=== PATIENT | male | born 1955 | race Caucasian/White ===

== ENCOUNTER → 2018-08-09 | Outpatient (CLI) | payer BC ==
--- NOTE | 2018-08-09 15:10 | CT ---
EXAMINATION TYPE: CT shoulder RT wo con DATE OF EXAM: 08/09/2018 COMPARISON: None HISTORY: Chronic rotator cuff tear per order.. CT DLP: 601.9 mGycm Automated exposure control for dose reduction was used. FINDINGS: Rotator cuff bulk shows mild generalized atrophy of the supraspinatus and to lesser degree infraspina tus muscles. Tendon tears cannot be evaluated by CT. Glenohumeral joint shows mild to moderate narrowing and mild spurring. No superior retraction of liam ral head identified to definitively suggest full-thickness rotator cuff tear. Acromioclavicular joint shows moderate to severe narrowing with moderate superior capsular hypertroph y. There is type II downsloping acromion. Humeral head shows some subchondral cystic change along the anterior aspect. Long head of biceps diff icult to distinctly visualize. Axillary region felt within normal limits. Visualized right lung and ribs are clear. Fairly moderate emphysematous change noted most prominent in the lung apex. IMPRESSION: ABOVE
== END | disposition home or self-care (01) ==
LOC: RADCTMAIN 14:32
PROVIDERS: ATTEND Orthopaedic Surgery Sports Medicine
DX: M62.511 Muscle wasting and atrophy, not elsewhere classified, right shoulder (principal); M25.811 Other specified joint disorders, right shoulder; M75.81 Other shoulder lesions, right shoulder; M85.611 Other cyst of bone, right shoulder; F17.200 Nicotine dependence, unspecified, uncomplicated

== ENCOUNTER → 2018-08-13 | Outpatient (CLI) | payer BC ==
[2018-08-13 09:57] LABS: Basophils % (A) 0 %; Eosinophils # (A) 0.3 k/uL (0-0.7); Eosinophils % (A) 4 %; HCT 45.4 % (39.0-53.0); HGB 14.5 gm/dL (13.0-17.5); Lymphocytes # (A) 1.4 k/uL (1.0-4.8); Lymphocytes % (A) 19 %; MCH 31.8 pg (25.0-35.0); MCV 99.2 fL (80.0-100.0); Macrocytosis Slight; Mean Platelet Volume 6.9; Monocytes # (A) 0.3 k/uL (0-1.0); Monocytes % (A) 4 %; Neutrophils # (A) 5.3 k/uL (1.3-7.7); Neutrophils % (A) 71 %; Platelet Count 375 k/uL (150-450); RBC 4.58 m/uL (4.30-5.90); RDW 15.5 % (11.5-15.5); WBC 7.5 k/uL (3.8-10.6)
[2018-08-13 10:18] LABS: Anion Gap 7 mmol/L; Blood Urea Nitrogen 16 mg/dL (9-20); Calcium 9.9 mg/dL (8.4-10.2); Carbon Dioxide 29 mmol/L (22-30); Chloride 103 mmol/L (98-107); Glucose 119 mg/dL (74-99); Sodium 139 mmol/L (137-145)
== END | disposition home or self-care (01) ==
LOC: LABPAT 08:57
PROVIDERS: ATTEND Internal Medicine
DX: Z01.818 Encounter for other preprocedural examination (principal); Z01.812 Encounter for preprocedural laboratory examination
CPT/HCPCS: 36415; 80048; 85025; 93005

== ENCOUNTER → 2018-08-19 | Outpatient (CLI) | payer BC ==
--- NOTE | 2018-08-19 11:37 | EST ---
EXERCISE STRESS DATE OF SERVICE: 08/19/2018 AGE: 63 SEX: Male HT: 5'9" WT: 211 pounds PROTOCOL: Doug STAGE: II DURATION OF EXERCISE: 4-1/2 minutes HEART RATE REST: 68 BLOOD PRESSURE REST: 139/79 MAXIMUM HEART RATE ACHIEVED: 133 MAXIMUM BLOOD PRESSURE: 186/98 85% MPHR: 133 100% MPHR: 156 METS: 5 INDICATIONS: Abnormal EKG CLINICAL INFORMATION: Baseline EKG shows sinus rhythm with nonspecific ST-T wave changes. Patient exercised on Doug protocol for a total of 4-1/2 minutes achieving 5 METs, 85% of predicted maximal heart rate without chest pain. At peak exercise, there was [address]-segment depression noted in the inferolateral leads. CONCLUSIONS: 1. Limited exercise tolerance. 2. Abnormal stress test by EKG criteria. MMODL / IJN: [id number] /
== END | disposition home or self-care (01) ==
LOC: RADNMMAIN 08:46
PROVIDERS: ATTEND Internal Medicine
DX: R94.39 Abnormal result of other cardiovascular function study (principal)
CPT/HCPCS: 93017

== ENCOUNTER → 2021-06-27 | Outpatient (CLI) | payer MEDICARE ==
--- NOTE | 2021-06-27 16:32 | XR ---
Left RIBS HISTORY: Pain, trauma 3 views of left ribs Acromial clavicular joint shows arthropathy, distal acromion shows a probable spur, suspect some alfie deling of the glenohumeral joint on the left consistent with osteoarthritis. No evident pneumothorax or pleural effusion. Tortuous descending aorta is present, thoracic spondylosis is present. There is no evident displaced rib fracture of the upper ribs. There is a lucency likely due to costoc hondral junction of the sixth and seventh ribs laterally IMPRESSION: Lucencies at the costochondral junctions as described, correlate for point tenderness to assess for fracture. Bone scan could be performed for increased sensitivity if occult fracture is anu pected clinically.
== END | disposition home or self-care (01) ==
LOC: RADXRMAIN 13:47
PROVIDERS: ATTEND Internal Medicine
DX: R07.81 Pleurodynia (principal)

== ENCOUNTER → 2022-03-11 | Outpatient (CLI) | payer MEDICARE ==
[2022-03-11 16:16] LABS: HCT 40.9 % (39.6-50.0); HGB 13.1 g/dL (13.0-17.0); MCH 32.6 pg (27.0-32.0); MCV 101.7 fL (80.0-97.0); Mean Platelet Volume 9.7 fL (9.5-12.2); NRBC Per 100 WBC 0 /100 WBCS (0.0-0.0); Platelet Count 305 X 10*3/uL (140-440); RBC 4.02 X 10*6/uL (4.40-5.60); RDW 13.9 % (11.5-14.5); WBC 3.18 X 10*3/uL (4.50-10.00)
[2022-03-11 21:11] LABS: African American GFR (CKD) 84.1 (60.0-200.0); Albumin 3.9 g/dL (3.8-4.9); Albumin/Globulin Ratio 0.74 (1.60-3.17); Anion Gap 17.3 mmol/L (10.00-18.00); BUN/Creat Ratio 14.76 Ratio (12.00-20.00); Blood Urea Nitrogen 15.5 mg/dL (9.0-27.0); Calcium 9.5 mg/dL (8.7-10.3); Carbon Dioxide 20.6 mmol/L (20.0-27.5); Globulin 5.3 g/dL (1.6-3.3); Non-African American GFR(CKD) 72.6 (60.0-200.0); T4, Free (Free Thyroxine) 1.02 ng/dL (0.800-1.800); Total Bilirubin 0.4 mg/dL (0.30-1.20); Total Protein 9.2 g/dL (6.2-8.2)
[2022-03-12 11:21] LABS: Estimated Average Glucose 481
== END | disposition home or self-care (01) ==
LOC: LABWHC1 10:57
PROVIDERS: ATTEND Internal Medicine
DX: R63.4 Abnormal weight loss (principal)
CPT/HCPCS: 36415; 80053; 83036; 84439; 84443; 85027

== ENCOUNTER → 2023-08-08 | Outpatient (CLI) | payer MEDICARE ==
--- NOTE | 2023-08-08 11:09 | XR ---
EXAM TYPE: LUMBAR SPINE X RAY SERIES COMPARISON: NONE HISTORY: Pain TECHNIQUE: 4 views are submitted. FINDINGS: Alignment is anatomic. The pedicles are intact. The transverse processes are intact. There is diff use osteopenia and severe multilevel degenerative disc disease with facet arthropathy. Hypertrophic s purring. There is findings suspicious for an abdominal aortic aneurysm measuring 4.6 cm. There is mul tilevel facet arthropathy and foraminal encroachment. Retrolisthesis of L2 relative to L3 with podiatric physician ior spondylosis at multiple levels. Findings are suggestive of prior surgery involving the lower lumb ar spine. IMPRESSION: 1. Diffuse osteopenia with severe degenerative disc disease at all levels. Facet arthropathy contribu nanette to multilevel foraminal encroachment. 2. Infrarenal abdominal aortic aneurysm measuring 4.6 cm.
--- NOTE | 2023-08-08 11:11 | XR ---
EXAMINATION TYPE: XR Hip Complete RT DATE OF EXAM: 08/08/2023 COMPARISON: NONE HISTORY: Pain TECHNIQUE: 2 views submitted FINDINGS: There is no evidence of erosive change or acute fracture. Moderate hypertrophic arthropathy of the ri ght hip. Vascular calcifications. No erosive changes. IMPRESSION: 1. Moderate hypertrophic arthropathy of the right hip. Correlate for femoral acetabular impingement..
== END | disposition home or self-care (01) ==
LOC: RADXRMAIN 10:09
PROVIDERS: ATTEND Family Medicine
DX: M51.36 Other intervertebral disc degeneration, lumbar region (principal); M47.816 Spondylosis without myelopathy or radiculopathy, lumbar region; M85.88 Other specified disorders of bone density and structure, other site; I71.43 Infrarenal abdominal aortic aneurysm, without rupture; M12.851 Other specific arthropathies, not elsewhere classified, right hip
CPT/HCPCS: 72100; 73502

== ENCOUNTER → 2023-09-17 | Outpatient (CLI) | payer MEDICARE ==
[2023-09-17 12:51] VITALS: BP 103/56; PULSE 79; RESP 14; TEMP 97.7
[2023-09-17] MEDS: SODIUM CHLORIDE 0.9% 500 ML 500 ML in EMPTY BAG 1 BAG IV PRN (12:52)
[2023-09-17] MEDS: ZOLEDRONIC ACID 4 MG in SODIUM CHLORIDE 0.9% 100 ML IV NR (12:52)
== END ==
LOC: PROCWHC3 12:22
PROVIDERS: ATTEND Internal Medicine
DX: C90.00 Multiple myeloma not having achieved remission (principal)
CPT/HCPCS: 96365; J3489

== ENCOUNTER 2023-09-24 13:17 | Emergency (ER) | payer MEDICARE ==
[2023-09-24 13:26] VITALS: RESP 18; TEMP 97.6
--- NOTE | 2023-09-24 13:32 | ED ---
Extremity Problem HPI - General Chief complaint: Extremity Problem,Nontraumatic Stated complaint: R hip pain Time Seen by Provider: 09/24/23 13:30 Source: patient, RN notes reviewed Mode of arrival: ambulatory Limitations: no limitations - History of Present Illness Initial comments: This is a 68-year-old male presents to the emergency department for chief complaint of right hip pain. Patient has a history of chronic right hip pain and was evaluated via radiologic studies that were ordered by his primary care provider. Patient has his first appointment with an airfield operations specialist this upcoming Sunday for further evaluation. He denies recent falls or trauma to the hip since time of initial evaluation. He has been prescribed medications from his primary care provider including relaxers which she states have not been aiding in relief. He denies saddle anesthesias, loss of bladder or bowel continence. Patient is able to ambulate with pain. He is endorsing radiation of pain from his right hip to his distal right foot described as a shocking sensation. No other acute complaints at this time. - Related Data Home Medications Medication Instructions Recorded Confirmed Acyclovir [Zovirax] 400 mg PO BID 04/23/23 09/17/23 Aspirin [Adult Low Dose Aspirin EC] 81 mg PO DAILY 04/23/23 09/17/23 Atorvastatin [Lipitor] 20 mg PO DAILY 04/23/23 09/17/23 Glimepiride 1 mg PO DAILY 04/23/23 09/17/23 Lenalidomide [Revlimid] 25 mg PO DAILY 04/23/23 09/17/23 Ondansetron [Zofran] 4 mg PO Q8HR PRN 04/23/23 09/17/23 dexAMETHasone [Decadron] 40 mg PO WEEKLY 04/23/23 09/17/23 lisinopriL [Zestril] 20 mg PO DAILY 04/23/23 09/17/23 Velcade 2.6 mg IN DIRECTED 04/30/23 09/17/23 Previous Rx's Medication Instructions Recorded Cyclobenzaprine [Flexeril] 10 mg PO TID PRN #15 tab 09/24/23 Ketorolac [Toradol] 10 mg PO Q8HR #15 tab 09/24/23 Allergies Allergy/AdvReac Type Severity Reaction Status Date / Time No Known Allergies Allergy Verified 09/24/23 13:26 Review of Systems ROS Statement: Those systems with pertinent positive or pertinent negative responses have been documented in the HPI. ROS Other: All systems not noted in ROS Statement are negative. Past Medical History Past Medical History: No Reported History, Diabetes Mellitus, Hypertension Additional Past Medical History / Comment(s): bone fractures ,multiple myeloma. History of Any Multi-Drug Resistant Organisms: None Reported Past Surgical History: Back Surgery, Orthopedic Surgery Additional Past Surgical History / Comment(s): r shoulder surgery Past Anesthesia/Blood Transfusion Reactions: No Reported Reaction Past Psychological History: No Psychological Hx Reported Smoking Status: Former smoker Past Alcohol Use History: None Reported Past Drug Use History: Marijuana General Exam Limitations: no limitations General appearance: alert, in no apparent distress Head exam: Present: atraumatic, normocephalic, normal inspection Eye exam: Present: normal appearance, PERRL, EOMI. Absent: scleral icterus, conjunctival injection, periorbital swelling ENT exam: Present: normal exam, mucous membranes moist Neck exam: Present: normal inspection. Absent: tenderness, meningismus, lymphadenopathy Respiratory exam: Present: normal lung sounds bilaterally. Absent: respiratory distress, wheezes, rales, rhonchi, stridor Cardiovascular Exam: Present: regular rate, normal rhythm, normal heart sounds. Absent: systolic murmur, diastolic murmur, rubs, gallop, clicks GI/Abdominal exam: Present: soft, normal bowel sounds. Absent: distended, tenderness, guarding, rebound, rigid Right Hip exam: Present: normal inspection. Absent: full ROM (pain with ROM), tenderness, swelling, abrasion, laceration, ecchymosis, deformity, crepitus Gait: observed and limited by pain. negative: unable to bear weight Back exam: Present: normal inspection Neurological exam: Present: alert, oriented X3, CN II-XII intact Course Vital Signs 09/24/23 09/24/23 13:24 15:28 Temperature 97.6 F Pulse Rate 83 69 Respiratory 18 18 Rate Blood Pressure 90/55 127/68 O2 Sat by Pulse 96 96 Oximetry Medical Decision Making - Medical Decision Making Was pt. sent in by a medical professional or institution (, PA, PLANT ASSIGNER, urgent care, hospital, or assisted...) When possible be specific @ -No Did you speak to anyone other than the patient for history (EMS, parent, family, police, friend...)? What history was obtained from this source @ -No Did you review nursing and triage notes (agree or disagree)? Why? @ -I reviewed and agree with nursing and triage notes Were old charts reviewed (outside hosp., previous admission, EMS record, old EKG, old radiological studies, urgent care reports/EKG's, assisted records)? Report findings @ -No old charts were reviewed Differential Diagnosis (chest pain, altered mental status, abdominal pain women, abdominal pain men, vaginal bleeding, weakness, fever, dyspnea, syncope, headache, dizziness, GI bleed, back pain, seizure, CVA, palpatations, mental health, musculoskeletal)? @ -Differential Musculoskeletal Muscular strain, contusion, ligament sprain, fracture, arthritis, septic arthritis, bursitis, cellulitis, muscle spasm, nerve compression, DVT, arterial occlusion, herpes zoster, electrolyte abnormality, tumor.... This is not meant to be in all inclusive list EKG interpreted by me (3pts min.). @ -None X-rays interpreted by me (1pt min.). @ -None done CT interpreted by me (1pt min.). @ -None done U/S interpreted by me (1pt. min.). @ -None done What testing was considered but not performed or refused? (CT, X-rays, U/S, labs)? Why? @ -X-ray was considered but deferred at this time due to patient having a recent x-ray completed and patient has not had any new trauma or injury to the hip concerning for an acute process. What meds were considered but not given or refused? Why? @ -None Did you discuss the management of the patient with other professionals (professionals i.e. , PA, PLANT ASSIGNER, lab, RT, psych nurse, director of social work, prepared foods associate, teacher, chief commercial officer, caser in)? Give summary @ -No Was smoking cessation discussed for >3mins.? @ -No Was critical care preformed (if so, how long)? @ -No Were there social determinants of health that impacted care today? How? (Homelessness, low income, unemployed, alcoholism, drug addiction, transportation, low edu. Level, literacy, decrease access to med. care, senior living, rehab)? @ -No Was there de-escalation of care discussed even if they declined (Discuss DNR or withdrawal of care, Hospice)? DNR status @ -No What co-morbidities impacted this encounter? (DM, HTN, Smoking, COPD, CAD, Cancer, CVA, ARF, Chemo, Hep., AIDS, mental health diagnosis, sleep apnea, morbid obesity)? @ -None Was patient admitted / discharged? Hospital course, mention meds given and route, prescriptions, significant lab abnormalities, going to OR and other pertinent info. @ -Discharged. 68-year-old male with right hip pain. On examination patient is able to ambulate with pain. He is endorsing a shocking sensation down the right leg that is intermittent. Patient was provided with pain medication in the emergency department doing Toradol and Dilaudid. On reevaluation patient states that his pain is significantly improved. Patient will be discharged home with muscle relaxer and Toradol as needed for pain relief. Recommend that patient keeps his scheduled appointment with airfield operations specialist for further evaluation. All questions have been answered at bedside and strict return parameters discussed with the patient he has verbalized understanding. Case discussed with Dr. Kirk. Undiagnosed new problem with uncertain prognosis? @ -No Drug Therapy requiring intensive monitoring for toxicity (Heparin, Nitro, Insulin, Cardizem)? @ -No Were any procedures done? @ -No Diagnosis/symptom? @ -Right hip pain Acute, or Chronic, or Acute on Chronic? @ -acute Uncomplicated (without systemic symptoms) or Complicated (systemic symptoms)? @ -uncomplicated Side effects of treatment? @ -No Exacerbation, Progression, or Severe Exacerbation? @ -No Poses a threat to life or bodily function? How? (Chest pain, [place], [place], pneumonia, PE, COPD, DKA, ARF, appy, cholecystitis, CVA, Diverticulitis, Homicidal, Suicidal, threat to staff... and all critical care pts) @ -No Disposition Clinical Impression: Right hip pain Disposition: HOME SELF-CARE Condition: Good Instructions (If sedation given, give patient instructions): Hip Pain (ED) Additional Instructions: Return to the emergency department symptoms worsen or not improve. Take pain medication as needed. Prescriptions: Cyclobenzaprine [Flexeril] 10 mg PO TID PRN #15 tab PRN Reason: Muscle Spasm Ketorolac [Toradol] 10 mg PO Q8HR #15 tab Is patient prescribed a controlled substance at d/c from ED?: No Referrals: Brian Murdock DO [Primary Care Provider] - 1-2 days
[2023-09-24] MEDS: HYDROmorphone 0.5 MG/0.5 ML SYRINGE IM STA (14:01)
[2023-09-24] MEDS: KETOROLAC 15 MG/ML 1 ML VIAL IM STA (14:01)
[2023-09-24 15:30] VITALS: BP 127/68; PULSE 69
== END 2023-09-24 15:31 | disposition home or self-care (01) ==
LOC: EC 13:17
DX: M25.551 Pain in right hip (principal); Z87.891 Personal history of nicotine dependence
CPT/HCPCS: 99283; 96372 ×2; J1885; J1170

== ENCOUNTER 2023-10-05 09:53 | Emergency (ER) | payer MEDICARE ==
[2023-10-05 09:56] VITALS: BP 136/83; PULSE 88; RESP 18; TEMP 97.8
[2023-10-05] MEDS: HYDROmorphone 1 MG/ML 1 ML SYRINGE IM STA (10:29)
[2023-10-05] MEDS: ORPHENADRINE 30 MG/ML 2 ML VIAL IM STA (10:31)
--- NOTE | 2023-10-05 10:31 | ED ---
Lower Extremity Injury HPI - General Chief Complaint: Extremity Injury, Lower Stated Complaint: R Hip Pain Time Seen by Provider: 10/05/23 10:00 Source: patient, RN notes reviewed Mode of arrival: wheelchair Limitations: no limitations - History of Present Illness Initial Comments: 68-year-old male with history of lumbar spondylosis presenting with right hip pain. States this right hip pain is chronic and he is currently following with [facility] who told him he has spondylosis of the lumbar spine that is causing the right hip pain. He currently has an MRI scheduled for this Sunday but states he cannot wait that long due to pain. Describes the pain as sharp pain that radiates down the right leg with associated numbness and tingli ng of the right foot. States this is all chronic and there are no new symptoms today. Denies any new trauma, falls, injuries. He is able to ambulate with pain and uses a cane. States he takes tramadol at night to help with sleep but otherwise does not take any other pain medications. - Related Data Home Medications Medication Instructions Recorded Confirmed Acyclovir [Zovirax] 400 mg PO BID 04/23/23 09/17/23 Aspirin [Adult Low Dose Aspirin EC] 81 mg PO DAILY 04/23/23 09/17/23 Atorvastatin [Lipitor] 20 mg PO DAILY 04/23/23 09/17/23 Glimepiride 1 mg PO DAILY 04/23/23 09/17/23 Lenalidomide [Revlimid] 25 mg PO DAILY 04/23/23 09/17/23 Ondansetron [Zofran] 4 mg PO Q8HR PRN 04/23/23 09/17/23 dexAMETHasone [Decadron] 40 mg PO WEEKLY 04/23/23 09/17/23 lisinopriL [Zestril] 20 mg PO DAILY 04/23/23 09/17/23 Velcade 2.6 mg IN DIRECTED 04/30/23 09/17/23 Previous Rx's Medication Instructions Recorded Cyclobenzaprine [Flexeril] 10 mg PO TID PRN #15 tab 09/24/23 Ketorolac [Toradol] 10 mg PO Q8HR #15 tab 09/24/23 predniSONE [Deltasone] 40 mg PO DAILY 5 Days #10 tab 10/05/23 Allergies Allergy/AdvReac Type Severity Reaction Status Date / Time No Known Allergies Allergy Verified 10/05/23 09:56 Review of Systems ROS Statement: Those systems with pertinent positive or pertinent negative responses have been documented in the HPI. ROS Other: All systems not noted in ROS Statement are negative. Past Medical History Past Medical History: No Reported History, Diabetes Mellitus, Hypertension Additional Past Medical History / Comment(s): bone fractures ,multiple myeloma. History of Any Multi-Drug Resistant Organisms: None Reported Past Surgical History: Back Surgery, Orthopedic Surgery Additional Past Surgical History / Comment(s): r shoulder surgery Past Anesthesia/Blood Transfusion Reactions: No Reported Reaction Past Psychological History: No Psychological Hx Reported Smoking Status: Former smoker Past Alcohol Use History: None Reported Past Drug Use History: Marijuana General Exam Limitations: no limitations General appearance: alert, in no apparent distress Head exam: Present: atraumatic, normocephalic, normal inspection Eye exam: Present: normal appearance, PERRL, EOMI. Absent: scleral icterus, con junctival injection, periorbital swelling ENT exam: Present: normal exam, mucous membranes moist Respiratory exam: Present: normal lung sounds bilaterally. Absent: respiratory distress, wheezes, rales, rhonchi, stridor Cardiovascular Exam: Present: regular rate, normal rhythm, normal heart sounds. Absent: systolic murmur, diastolic murmur, rubs, gallop, clicks Right Hip exam: Present: normal inspection, full ROM. Absent: tenderness, swelling Upper Leg exam: Present: normal inspection, full ROM. Absent: tenderness, swelling Knee exam: Present: normal inspection, full ROM. Absent: tenderness, swelling Lower Leg exam: Present: normal inspection, full ROM. Absent: tenderness, swelling Ankle exam: Present: normal inspection, full ROM. Absent: tenderness, swelling Foot/Toe exam: Present: normal inspection, full ROM. Absent: tenderness, swelling Neurovascular tendon exam: Present: no vascular compromise. Absent: pulse deficit, abnormal cap refill, motor deficit, sensory deficit Back exam: Present: normal inspection, full ROM. Absent: tenderness, paraspinal tenderness Neurological exam: Present: alert, oriented X3 Psychiatric exam: Present: normal affect, normal mood Skin exam: Present: warm, dry, intact, normal color. Absent: rash Course Vital Signs 10/05/23 09:54 Temperature 97.8 F Pulse Rate 88 Respiratory 18 Rate Blood Pressure 136/83 O2 Sat by Pulse 96 Oximetry Medical Decision Making - Medical Decision Making Was pt. sent in by a medical professional or institution (, JERONIMO, WATER PUMP ASSEMBLER, urgent care, hospital, or custodial...) When possible be specific @ -No Did you speak to anyone other than the patient for history (EMS, parent, family, police, friend...)? What history was obtained from this source @ -No Did you review nursing and triage notes (agree or disagree)? Why? @ -I reviewed and agree with nursing and triage notes Were old charts reviewed (outside hosp., previous admission, EMS record, old EKG, old radiological studies, urgent care reports/EKG's, custodial records)? Report findings @ -Previous ER visit reviewed Differential Diagnosis (chest pain, altered mental status, abdominal pain women, abdominal pain men, vaginal bleeding, weakness, fever, dyspnea, syncope, headache, dizziness, GI bleed, back pain, seizure, CVA, palpatations, mental health, musculoskeletal)? @ -Differential Musculoskeletal Muscular strain, contusion, ligament sprain, fracture, arthritis, septic arthritis, bursitis, cellulitis, muscle spasm, nerve compression, DVT, arterial occlusion, herpes zoster, electrolyte abnormality, tumor.... This is not meant to be in all inclusive list EKG interpreted by me (3pts min.). @ -None X-rays interpreted by me (1pt min.). @ -None done CT interpreted by me (1pt min.). @ -None done U/S interpreted by me (1pt. min.). @ -None done What testing was considered but not performed or refused? (CT, X-rays, U/S, labs)? Why? @ -Imaging considered but not performed due to patient has chronic pain and no new injuries or trauma. Patient has scheduled MRI on Sunday What meds were considered but not given or refused? Why? @ -None Did you discuss the management of the patient with other professionals (professionals i.e. JERONIMO Aden, WATER PUMP ASSEMBLER, lab, RT, psych nurse, social services manager, screening tech, teacher, systems support officer, rn field case manager)? Give summary @ -No Was smoking cessation discussed for >3mins.? @ -No Was critical care preformed (if so, how long)? @ -No Were there social determinants of health that impacted care today? How? (Homelessness, low income, unemployed, alcoholism, drug addiction, transportation, low edu. Level, literacy, decrease access to med. care, fpc, rehab)? @ -No Was there de-escalation of care discussed even if they declined (Discuss DNR or withdrawal of care, Hospice)? DNR status @ -No What co-morbidities impacted this encounter? (DM, HTN, Smoking, COPD, CAD, Cancer, CVA, ARF, Chemo, Hep., AIDS, mental health diagnosis, sleep apnea, morbid obesity)? @ -None Was patient admitted / discharged? Hospital course, mention meds given and route, prescriptions, significant lab abnormalities, going to OR and other pertinent info. @ -Patient was discharged. Patient was seen and evaluated for acute flareup of chronic right hip pain. Patient follows closely with [facility] and has an MRI scheduled on Sunday. No new trauma or injury. Neurovascularly intact. No red flag symptoms. Imaging considered but not performed due to chronic nature of pain and no new injuries or trauma. Patient was given IM Dilaudid and IM Norflex for pain. Patient reports symptoms are significantly improved after medications. Discussed diagnosis of sciatica with patient. Supportive care discussed. Strict return/alarm symptoms discussed with patient and he shows understanding agrees with plan. Encouraged to follow-up for MRI on Sunday. Prescribed prednisone to pharmacy. Case discussed with my attending Dr. Silva. Patient discharged in stable condition. Undiagnosed new problem with uncertain prognosis? @ -No Drug Therapy requiring intensive monitoring for toxicity (Heparin, Nitro, Insulin, Cardizem)? @ -No Were any procedures done? @ -No Diagnosis/symptom? @ -Sciatica Acute, or Chronic, or Acute on Chronic? @ -Acute on chronic Uncomplicated (without systemic symptoms) or Complicated (systemic symptoms)? @ -Uncomplicated Side effects of treatment? @ -No Exacerbation, Progression, or Severe Exacerbation? @ -No Poses a threat to life or bodily function? How? (Chest pain, [place], [place], pneumonia, PE, COPD, DKA, ARF, appy, cholecystitis, CVA, Diverticulitis, Homicidal, Suicidal, threat to staff... and all critical care pts) @ -No Disposition Clinical Impression: Sciatica, right side Disposition: HOME SELF-CARE Condition: Stable Instructions (If sedation given, give patient instructions): Sciatica (ED) Prescriptions: predniSONE [Deltasone] 40 mg PO DAILY 5 Days #10 tab Is patient prescribed a controlled substance at d/c from ED?: No Referrals: Brian Murdock DO [Primary Care Provider] - 1-2 days Time of Disposition: 11:10
== END 2023-10-05 11:10 | disposition home or self-care (01) ==
LOC: EC 09:53
DX: M54.31 Sciatica, right side (principal); Z87.891 Personal history of nicotine dependence
CPT/HCPCS: 99283; 96372 ×2; J2360; J1170

== ENCOUNTER 2023-10-14 07:00 | Emergency (ER) | payer MEDICARE ==
[2023-10-14 07:11] VITALS: PULSE 77; TEMP 98.1
--- NOTE | 2023-10-14 07:32 | ED ---
Back Pain HPI - General Chief Complaint: Back Pain/Injury Stated Complaint: Right hip and leg pain Time Seen by Provider: 10/14/23 07:16 Source: patient, RN notes reviewed Limitations: no limitations - History of Present Illness Initial Comments: 68-year-old male presents emergency department chief complaint of right hip pain. This has been worsening pain. Patient states he had a recent MRI of his lumbar spine he has not heard any news from orthopedics associate regarding his MRI. He denies any bowel, bladder and cons retention. Patient states he has more right hip pain than anything he states he was on tramadol but states that he is out of that and states it did not help much. He denies any bowel, bladder incontinence retention no saddle anesthesias. Denies any trauma no falls no associated weakness he has had prior lumbar surgery. - Related Data Home Medications Medication Instructions Recorded Confirmed Acyclovir [Zovirax] 400 mg PO BID 04/23/23 09/17/23 Aspirin [Adult Low Dose Aspirin EC] 81 mg PO DAILY 04/23/23 09/17/23 Atorvastatin [Lipitor] 20 mg PO DAILY 04/23/23 09/17/23 Glimepiride 1 mg PO DAILY 04/23/23 09/17/23 Lenalidomide [Revlimid] 25 mg PO DAILY 04/23/23 09/17/23 Ondansetron [Zofran] 4 mg PO Q8HR PRN 04/23/23 09/17/23 dexAMETHasone [Decadron] 40 mg PO WEEKLY 04/23/23 09/17/23 lisinopriL [Zestril] 20 mg PO DAILY 04/23/23 09/17/23 Velcade 2.6 mg IN DIRECTED 04/30/23 09/17/23 Previous Rx's Medication Instructions Recorded Cyclobenzaprine [Flexeril] 10 mg PO TID PRN #15 tab 09/24/23 Ketorolac [Toradol] 10 mg PO Q8HR #15 tab 09/24/23 predniSONE [Deltasone] 40 mg PO DAILY 5 Days #10 tab 10/05/23 HYDROcodone/APAP 5-325MG [[place] 5] 1 each PO Q6HR PRN #12 tab 10/14/23 Allergies Allergy/AdvReac Type Severity Reaction Status Date / Time No Known Allergies Allergy Verified 10/05/23 09:56 Review of Systems ROS Statement: Those systems with pertinent positive or pertinent negative responses have been documented in the HPI. ROS Other: All systems not noted in ROS Statement are negative. Past Medical History Past Medical History: Diabetes Mellitus, Hypertension Additional Past Medical History / Comment(s): bone fractures ,multiple myeloma. degenative disc disease, herniation of disc History of Any Multi-Drug Resistant Organisms: None Reported Past Surgical History: Back Surgery, Orthopedic Surgery Additional Past Surgical History / Comment(s): r shoulder surgery Past Anesthesia/Blood Transfusion Reactions: No Reported Reaction Past Psychological History: No Psychological Hx Reported Smoking Status: Former smoker Past Alcohol Use History: None Reported Past Drug Use History: Marijuana General Exam Limitations: no limitations General appearance: alert, in no apparent distress Head exam: Present: atraumatic, normocephalic, normal inspection Neck exam: Present: normal inspection, full ROM. Absent: tenderness, meningismus, lymphadenopathy Respiratory exam: Present: normal lung sounds bilaterally. Absent: respiratory distress, wheezes, rales, rhonchi, stridor Cardiovascular Exam: Present: regular rate, normal rhythm, normal heart sounds. Absent: systolic murmur, diastolic murmur, rubs, gallop, clicks GI/Abdominal exam: Present: soft, normal bowel sounds. Absent: distended, tenderness, guarding, rebound, rigid Extremities exam: Present: other (Lower extremity strength equal bilaterally neurovascular intact equal color equal warmth there is no swelling noted there is moderate right hip tenderness) Neurological exam: Present: alert, oriented X3, CN II-XII intact, reflexes normal. Absent: motor sensory deficit Course Vital Signs 10/14/23 07:08 Temperature 98.1 F Pulse Rate 77 Respiratory 20 Rate Blood Pressure 147/76 O2 Sat by Pulse 97 Oximetry Medical Decision Making - Medical Decision Making Was pt. sent in by a medical professional or institution (, PA, SOURCING COORDINATOR, urgent care, hospital, or long term...) When possible be specific @ -No Did you speak to anyone other than the patient for history (EMS, parent, family, police, friend...)? What history was obtained from this source @ -No Did you review nursing and triage notes (agree or disagree)? Why? @ -I reviewed and agree with nursing and triage notes Were old charts reviewed (outside hosp., previous admission, EMS record, old EKG, old radiological studies, urgent care reports/EKG's, long term records)? Report findings @ -No old charts were reviewed Differential Diagnosis (chest pain, altered mental status, abdominal pain women, abdominal pain men, vaginal bleeding, weakness, fever, dyspnea, syncope, headache, dizziness, GI bleed, back pain, seizure, CVA, palpatations, mental health, musculoskeletal)? @ -Hip pain, lumbar radiculopathy, leg pain EKG interpreted by me (3pts min.). @ -None X-rays interpreted by me (1pt min.). @ -@Very right hip with AP pelvis and mild arthritic changes CT interpreted by me (1pt min.). @ -None done U/S interpreted by me (1pt. min.). @ -None done What testing was considered but not performed or refused? (CT, X-rays, U/S, labs)? Why? @ -None What meds were considered but not given or refused? Why? @ -None Did you discuss the management of the patient with other professionals (professionals i.e. , PA, SOURCING COORDINATOR, lab, RT, psych nurse, director of social services, sales operations coordinator, teacher, financial compliance officer, rn field case manager)? Give summary @ -No Was smoking cessation discussed for >3mins.? @ -No Was critical care preformed (if so, how long)? @ -No Were there social determinants of health that impacted care today? How? (Homelessness, low income, unemployed, alcoholism, drug addiction, transportation, low edu. Level, literacy, decrease access to med. care, intermediate, rehab)? @ -No Was there de-escalation of care discussed even if they declined (Discuss DNR or withdrawal of care, Hospice)? DNR status @ -No What co-morbidities impacted this encounter? (DM, HTN, Smoking, COPD, CAD, Cancer, CVA, ARF, Chemo, Hep., AIDS, mental health diagnosis, sleep apnea, morbid obesity)? @ -None Was patient admitted / discharged? Hospital course, mention meds given and route, prescriptions, significant lab abnormalities, going to OR and other pertinent info. @ -Discharge patient's x-rays of the right hip show mild degenerative changes there is no other acute process. Symptoms are more consistent with lumbar radiculopathy. Patient does have equal pedal pulses and is neurovascular tact with no red flag symptoms. Patient had MRI in which I do not have the results though patient is scheduled for follow-up and has been reviewed by orthopedics. Patient right analgesics and is discharged in stable condition. Undiagnosed new problem with uncertain prognosis? @ -No Drug Therapy requiring intensive monitoring for toxicity (Heparin, Nitro, Insulin, Cardizem)? @ -No Were any procedures done? @ -No Diagnosis/symptom? @ -Lumbar radiculopathy Acute, or Chronic, or Acute on Chronic? @ -Acute Uncomplicated (without systemic symptoms) or Complicated (systemic symptoms)? @ -Uncomplicated Side effects of treatment? @ -No Exacerbation, Progression, or Severe Exacerbation? @ -No Poses a threat to life or bodily function? How? (Chest pain, [place], [place], pneumonia, PE, COPD, DKA, ARF, appy, cholecystitis, CVA, Diverticulitis, Homicidal, Suicidal, threat to staff... and all critical care pts) @ -No Disposition Clinical Impression: Lumbar radiculopathy, Right hip pain Disposition: HOME SELF-CARE Condition: Stable Instructions (If sedation given, give patient instructions): Lumbar Radiculopathy (ED) Additional Instructions: Please return to the Emergency Department if symptoms worsen or any other concerns. Prescriptions: HYDROcodone/APAP 5-325MG [[place] 5] 1 each PO Q6HR PRN #12 tab PRN Reason: Pain Is patient prescribed a controlled substance at d/c from ED?: Yes When asked, does pt state using other controlled substances?: No If prescribed controlled substance>3 days was MAPS reviewed?: Prescribed <3 Days If opioid is for acute pain is fill amount 7 days or less?: Yes If Rx opioid, was Start Talking consent form obtained?: Yes Referrals: Brian Murdock DO [Primary Care Provider] - 1-2 days Time of Disposition: 07:50
--- NOTE | 2023-10-14 07:44 | XR ---
EXAMINATION TYPE: XR Hip RT and AP Pelvis DATE OF EXAM: 10/14/2023 CLINICAL HISTORY: pain TECHNIQUE: AP and frogleg views of the right hip are obtained. An single view pelvis COMPARISON: None. FINDINGS: There is no acute fracture/dislocation evident. The joint space appears mildly narrowed. . The overlying soft tissue appears unremarkable. IMPRESSION: 1. There is no acute fracture or dislocation. ICD 10 NO FRACTURE, INITIAL EVALUATION
[2023-10-14] MEDS: KETOROLAC 15 MG/ML 1 ML VIAL IVP STA (07:52)
[2023-10-14] MEDS: HYDROmorphone 1 MG/ML 1 ML SYRINGE IVP STA (07:53)
[2023-10-14 08:36] VITALS: BP 102/90; RESP 18
== END 2023-10-14 08:25 | disposition home or self-care (01) ==
LOC: EC 07:00
DX: M25.551 Pain in right hip (principal); M54.16 Radiculopathy, lumbar region; Z87.891 Personal history of nicotine dependence
CPT/HCPCS: 73502; 99283; 96374; 96375; J1170; J1885

== ENCOUNTER 2023-10-19 09:42 | Emergency (ER) | payer MEDICARE ==
[2023-10-19 09:49] VITALS: RESP 18
--- NOTE | 2023-10-19 10:19 | ED ---
Back Pain HPI - General Chief Complaint: Back Pain/Injury Stated Complaint: hip/leg pain Time Seen by Provider: 10/19/23 09:49 Source: patient, RN notes reviewed Mode of arrival: wheelchair Limitations: physical limitation - History of Present Illness Initial Comments: This is a 68-year-old male who presents to the emergency department for right sided hip and back pain. States that this has been progressive over the last 2 months. He recently had an MRI and has an appointment with Dr. Zaman in 5 days to review the results. He received a 3 days supply of Foristell 5 days ago and states that this was effectively managing his pain and requests another prescription. Denies any loss of bowel/bladder control or saddle anesthesia. - Related Data Home Medications Medication Instructions Recorded Confirmed Acyclovir [Zovirax] 400 mg PO BID 04/23/23 09/17/23 Aspirin [Adult Low Dose Aspirin EC] 81 mg PO DAILY 04/23/23 09/17/23 Atorvastatin [Lipitor] 20 mg PO DAILY 04/23/23 09/17/23 Glimepiride 1 mg PO DAILY 04/23/23 09/17/23 Lenalidomide [Revlimid] 25 mg PO DAILY 04/23/23 09/17/23 Ondansetron [Zofran] 4 mg PO Q8HR PRN 04/23/23 09/17/23 dexAMETHasone [Decadron] 40 mg PO WEEKLY 04/23/23 09/17/23 lisinopriL [Zestril] 20 mg PO DAILY 04/23/23 09/17/23 Velcade 2.6 mg IN DIRECTED 04/30/23 09/17/23 Previous Rx's Medication Instructions Recorded Cyclobenzaprine [Flexeril] 10 mg PO TID PRN #15 tab 09/24/23 Ketorolac [Toradol] 10 mg PO Q8HR #15 tab 09/24/23 predniSONE [Deltasone] 40 mg PO DAILY 5 Days #10 tab 10/05/23 HYDROcodone/APAP 5-325MG [[place] 5] 1 each PO Q6HR PRN #12 tab 10/14/23 Cyclobenzaprine [Flexeril] 10 mg PO TID PRN #30 tab 10/19/23 HYDROcodone/APAP 5-325MG [[place] 1 tab PO Q6HR PRN 3 Days #12 tab 10/19/23 5-325] Meloxicam [Mobic] 15 mg PO DAILY PRN #30 tab 10/19/23 Allergies Allergy/AdvReac Type Severity Reaction Status Date / Time No Known Allergies Allergy Verified 10/19/23 09:48 Review of Systems ROS Statement: Those systems with pertinent positive or pertinent negative responses have been documented in the HPI. ROS Other: All systems not noted in ROS Statement are negative. Past Medical History Past Medical History: Diabetes Mellitus, Hypertension Additional Past Medical History / Comment(s): bone fractures ,multiple myeloma. degenative disc disease, herniation of disc History of Any Multi-Drug Resistant Organisms: None Reported Past Surgical History: Back Surgery, Orthopedic Surgery Additional Past Surgical History / Comment(s): r shoulder surgery Past Anesthesia/Blood Transfusion Reactions: No Reported Reaction Past Psychological History: No Psychological Hx Reported Smoking Status: Former smoker Past Alcohol Use History: None Reported Past Drug Use History: Marijuana General Exam Limitations: physical limitation General appearance: alert, in no apparent distress Head exam: Present: atraumatic, normocephalic, normal inspection Respiratory exam: Present: normal lung sounds bilaterally. Absent: respiratory distress, wheezes, rales, rhonchi, stridor Cardiovascular Exam: Present: regular rate, normal rhythm, normal heart sounds. Absent: systolic murmur, diastolic murmur, rubs, gallop, clicks Back exam: Present: other (Tenderness to palpation over the right lower back) Neurological exam: Present: alert, oriented X3, CN II-XII intact Psychiatric exam: Present: normal affect, normal mood Skin exam: Present: warm, dry, intact, normal color. Absent: rash Course Vital Signs 10/19/23 10/19/23 09:45 10:54 Temperature 98.7 F 98.5 F Pulse Rate 85 80 Respiratory 18 18 Rate Blood Pressure 141/83 138/79 O2 Sat by Pulse 98 98 Oximetry Medical Decision Making - Medical Decision Making This is a 68 year old male who presents to the emergency department for right hip and back pain. Was pt. sent in by a medical professional or institution? @ -No Did you speak to anyone other than the patient for history? @ -No Did you review nursing and triage notes? @ -Yes, and I agree, it is accurate with regards to the patient's symptoms. Were old charts reviewed? @ -No Differential Diagnosis? @ Differential Back Pain: Strain, zoster, cauda equina syndrome, epidural abscess, vertebral osteomyelitis, discitis, fracture, subluxation, disc herniation, DJD, spinal stenosis, dissection, AAA, pancreatitis, peptic ulcer disease, pyelonephritis, kidney stone, this is not meant to be an all-inclusive list. EKG interpreted by me (3pts min.)? @ -Not obtained X-rays interpreted by me (1pt min.)? @ -Not obtained CT interpreted by me (1pt min.)? @ -Not obtained U/S interpreted by me (1pt. min.)? @ -Not obtained What testing was considered but not performed? (CT, X-rays, U/S, labs)? Why? @ -None What meds were considered but not given? Why? @ -None Did you discuss the management of the patient with other professionals? @ -No Did you reconcile home meds? @ -No Was smoking cessation discussed for >3mins.? @ -No Was critical care preformed (if so, how long)? @ -No Were there social determinants of health that impacted care today? How? (Homelessness, low income, unemployed, alcoholism, drug addiction, transportation, low edu. Level, literacy, decrease access to med. care, senior care, rehab)? @ -No Was there de-escalation of care discussed even if they declined? (Discuss DNR or withdrawal of care, Hospice)? @ -No What co-morbidities impacted this encounter? (DM, HTN, Smoking, COPD, CAD, Cancer, CVA, Hep., AIDS, mental health diagnosis, sleep apnea, morbid obesity)? @ -Multiple myeloma, DDD Was patient admitted / discharged? @ -Discharged. Given that this is a chronic pain, no imaging was obtained. Pain was managed in the emergency department. I was willing to give him another 3 day rx for Foristell. Mobic and Flexeril prescribed as well to see if that will lessen how often he needs to take the For[place]ell. Patient discharged home in stable condition and will follow up with Dr. Zaman as scheduled. Undiagnosed new problem with uncertain prognosis? @ -None Drug Therapy requiring intensive monitoring for toxicity (Heparin, Nitro, Insulin, Cardizem)? @ -None Were any procedures done? @ -None Diagnosis/symptom? @ -Back pain, Hip pain Acute, or Chronic, or Acute on Chronic? @ -Chronic Uncomplicated (without systemic symptoms) or Complicated (systemic symptoms)? @ -Uncomplicated Side effects of treatment? @ -None Exacerbation, Progression, or Severe Exacerbation] @ -Exacerbation Poses a threat to life or bodily function? @ -The pain limits his ability to function Return precautions reviewed in depth, the patient is instructed to return to the emergency department with any new, worsening, or concerning symptoms. Patient verbalized understanding. This case was discussed in detail with the attending ED physician, Dr. Plummer. Presentation, findings, and treatment plan discussed in detail as well. Disposition Clinical Impression: Right-sided back pain, Right hip pain Disposition: HOME SELF-CARE Instructions (If sedation given, give patient instructions): Back Pain (ED) Additional Instructions: Return to the emergency department with any new, worsening, or concerning symptoms. Take the Mobic once daily to see if that helps with your pain. Take the Flexeril up to 3 times daily and take the [place] sparingly when your pain is the most severe. Be aware that both the [place] and Flexeril may make you drowsy. Prescriptions: Cyclobenzaprine [Flexeril] 10 mg PO TID PRN #30 tab PRN Reason: Pain Meloxicam [Mobic] 15 mg PO DAILY PRN #30 tab PRN Reason: Pain HYDROcodone/APAP 5-325MG [[place] 5-325] 1 tab PO Q6HR PRN 3 Days #12 tab PRN Reason: Pain Is patient prescribed a controlled substance at d/c from ED?: Yes When asked, does pt state using other controlled substances?: No If prescribed controlled substance>3 days was MAPS reviewed?: Prescribed <3 Days Referrals: Brian Murdock DO [Primary Care Provider] - 1-2 days Time of Disposition: 10:19
[2023-10-19] MEDS: KETOROLAC 15 MG/ML 1 ML VIAL IM STA (10:21)
[2023-10-19] MEDS: HYDROmorphone 1 MG/ML 1 ML SYRINGE IM STA (10:22)
[2023-10-19 10:56] VITALS: BP 138/79; PULSE 80; TEMP 98.5
== END 2023-10-19 10:55 | disposition home or self-care (01) ==
LOC: EC 09:42
DX: C90.00 Multiple myeloma not having achieved remission (principal); M51.36 Other intervertebral disc degeneration, lumbar region; M25.551 Pain in right hip; Z87.891 Personal history of nicotine dependence
CPT/HCPCS: 99283; 96372 ×2; J1170; J1885

== ENCOUNTER → 2023-10-29 | Outpatient (CLI) | payer MEDICARE ==
[2023-10-29 13:59] VITALS: BP 127/61; PULSE 96; RESP 16; TEMP 98.3
[2023-10-29] MEDS: ZOLEDRONIC ACID 4 MG in SODIUM CHLORIDE 0.9% 100 ML IV NR (14:00)
[2023-10-29] MEDS: SODIUM CHLORIDE 0.9% 500 ML 500 ML in EMPTY BAG 1 BAG IV PRN (14:00)
== END ==
LOC: PROCWHC3 13:45
PROVIDERS: ATTEND Internal Medicine
DX: C90.00 Multiple myeloma not having achieved remission (principal)
CPT/HCPCS: 96365; J3489

== ENCOUNTER → 2023-11-01 | Outpatient (CLI) | payer MEDICARE ==
[2023-11-01 16:14] LABS: Basophils # (A) 0.01 X 10*3/uL (0.00-0.10); Basophils % (A) 0.1 %; Eosinophils # (A) 0 X 10*3/uL (0.04-0.35); Eosinophils % (A) 0 %; HCT 35.5 % (39.6-50.0); HGB 12.1 g/dL (13.0-17.0); Lymphocytes # (A) 0.67 X 10*3/uL (0.90-5.00); Lymphocytes % (A) 6.4 %; MCH 33.8 pg (27.0-32.0); MCHC 34.1 g/dL (32.0-37.0); MCV 99.2 FL (80.0-97.0); Mean Platelet Volume 9.8 FL (9.5-12.2); Monocytes # (A) 0.64 X 10*3/uL (0.20-1.00); Monocytes % (A) 6.1 %; NRBC Per 100 WBC 0 X 10*3/uL (0.00-0.01); Neutrophils % (A) 86.7 %; Platelet Count 361 X 10*3/uL (140-440); RBC 3.58 X 10*6/uL (4.40-5.60); WBC 10.49 X 10*3/uL (4.50-10.00)
== END | disposition home or self-care (01) ==
LOC: LABWHC1 08:18
PROVIDERS: ATTEND Physical Medicine & Rehabilitation
DX: M41.26 Other idiopathic scoliosis, lumbar region (principal); M47.817 Spondylosis without myelopathy or radiculopathy, lumbosacral region; M48.062 Spinal stenosis, lumbar region with neurogenic claudication; M51.37 Other intervertebral disc degeneration, lumbosacral region; M47.815 Spondylosis without myelopathy or radiculopathy, thoracolumbar region; M51.35 Other intervertebral disc degeneration, thoracolumbar region
CPT/HCPCS: 36415; 85025

== ENCOUNTER → 2023-12-10 | Outpatient (CLI) | payer MEDICARE ==
[2023-12-10 12:04] VITALS: BP 116/65; PULSE 71; RESP 16; TEMP 98.3
[2023-12-10] MEDS: ZOLEDRONIC ACID 4 MG in SODIUM CHLORIDE 0.9% 100 ML IV NR (12:04)
[2023-12-10] MEDS: SODIUM CHLORIDE 0.9% 500 ML 500 ML in EMPTY BAG 1 BAG IV PRN (12:06)
== END ==
LOC: PROCWHC3 11:49
PROVIDERS: ATTEND Internal Medicine
DX: C90.00 Multiple myeloma not having achieved remission (principal)
CPT/HCPCS: 96365; J3489

== ENCOUNTER → 2023-12-11 | Outpatient (CLI) | payer MEDICARE ==
[2023-12-11 14:12] LABS: INR 0.9 (<1.2); Partial Thromboplastin Time 23.5 sec (22.0-30.0); Prothrombin Time 10.3 sec (10.0-12.5)
--- NOTE | 2023-12-11 15:11 | XR ---
EXAMINATION TYPE: XR chest 2V DATE OF EXAM: 12/11/2023 COMPARISON: 06/27/2021 HISTORY: 68-year-old male Z01.818 PAT, preoperative assessment for spine surgery TECHNIQUE: Frontal and lateral views FINDINGS: Heart normal size. Aorta and pulmonary vasculature within normal limits. No consolidation or pleural effusion. IMPRESSION: No acute cardiopulmonary process.
[2023-12-11 18:02] LABS: Basophils # (A) 0.01 X 10*3/uL (0.00-0.10); Basophils % (A) 0.1 %; Eosinophils # (A) 0.03 X 10*3/uL (0.04-0.35); Eosinophils % (A) 0.3 %; HCT 40.1 % (39.6-50.0); HGB 13.5 g/dL (13.0-17.0); Lymphocytes % (A) 7.6 %; MCH 34.2 pg (27.0-32.0); MCHC 33.7 g/dL (32.0-37.0); MCV 101.5 FL (80.0-97.0); Mean Platelet Volume 9.9 FL (9.5-12.2); Monocytes # (A) 0.84 X 10*3/uL (0.20-1.00); Monocytes % (A) 7.1 %; NRBC Per 100 WBC 0 X 10*3/uL (0.00-0.01); Neutrophils # (A) 9.99 X 10*3/uL (1.80-7.70); Neutrophils % (A) 84.5 %; Platelet Count 351 X 10*3/uL (140-440); RBC 3.95 X 10*6/uL (4.40-5.60); RDW 16.8 % (11.5-14.5); WBC 11.82 X 10*3/uL (4.50-10.00)
[2023-12-11 18:22] LABS: ALT 35 U/L (10-49); AST 16 U/L (14-35); Albumin 4.2 g/dL (3.8-4.9); Albumin/Globulin Ratio 2.47 Ratio (1.60-3.17); Alkaline Phosphatase 80 U/L (41-126); Calcium 9.7 mg/dL (8.7-10.3); Chloride 97 mmol/L (96-109); Globulin 1.7 g/dL (1.6-3.3); Glucose 201 mg/dL (70-110); Potassium 4.8 mmol/L (3.5-5.5); Sodium 135 mmol/L (135-145); Total Bilirubin 0.3 mg/dL (0.3-1.2); Total Protein 5.9 g/dL (6.2-8.2)
[2023-12-11 18:35] LABS: Appearance,Urine Clear (Clear); Bilirubin,Urine Negative (Negative); Blood,Urine Negative (Negative); Color,Urine Yellow (Yellow); Ketones,Urine Negative (Negative); Nitrite,Urine Negative (Negative); PH, Urine 6.5; Specific Gravity,Urine 1.019 (1.001-1.030); Urobilinogen,Urine 0.2 E.U./DL
== END | disposition home or self-care (01) ==
LOC: LABPAT 13:06
PROVIDERS: ATTEND Orthopaedic Surgery Orthopaedic Surgery of the Spine
DX: Z01.818 Encounter for other preprocedural examination (principal); M41.50 Other secondary scoliosis, site unspecified; M48.00 Spinal stenosis, site unspecified; R94.31 Abnormal electrocardiogram [ECG] [EKG]
CPT/HCPCS: 71046; 80053; 81003; 85025; 85610; 85730; 86850; 86900; 86901; 93005

== ENCOUNTER → 2024-01-14 | Outpatient (CLI) | payer MEDICARE ==
[2024-01-14 11:47] LABS: INR 0.9 (<1.2); Partial Thromboplastin Time 22.6 sec (22.0-30.0); Prothrombin Time 9.9 sec (10.0-12.5)
[2024-01-14 11:52] LABS: Appearance,Urine Clear (Clear); Bilirubin,Urine Negative (Negative); Blood,Urine Negative (Negative); Color,Urine Colorless; Glucose,Urine (UA) 3+ (Negative); Ketones,Urine Negative (Negative); Leukocyte Esterase,Urine Negative (Negative); Nitrite,Urine Negative (Negative); PH, Urine 6.5 (5.0-8.0); Protein,Urine Negative (Negative); Specific Gravity,Urine 1.015 (1.001-1.035); Urobilinogen,Urine <2.0 mg/dL (<2.0)
[2024-01-14 15:14] LABS: Basophils # (A) 0.01 X 10*3/uL (0.00-0.10); Basophils % (A) 0.1 %; Eosinophils # (A) 0.06 X 10*3/uL (0.04-0.35); Eosinophils % (A) 0.7 %; HCT 40.2 % (39.6-50.0); HGB 13.6 g/dL (13.0-17.0); Lymphocytes # (A) 1.48 X 10*3/uL (0.90-5.00); Lymphocytes % (A) 16.1 %; MCH 34.4 pg (27.0-32.0); MCHC 33.8 g/dL (32.0-37.0); MCV 101.8 FL (80.0-97.0); Mean Platelet Volume 9.7 FL (9.5-12.2); Monocytes # (A) 0.85 X 10*3/uL (0.20-1.00); Monocytes % (A) 9.2 %; NRBC Per 100 WBC 0 X 10*3/uL (0.00-0.01); Neutrophils # (A) 6.74 X 10*3/uL (1.80-7.70); Neutrophils % (A) 73.4 %; Platelet Count 331 X 10*3/uL (140-440); RBC 3.95 X 10*6/uL (4.40-5.60); WBC 9.19 X 10*3/uL (4.50-10.00)
[2024-01-14 16:20] LABS: BUN/Creat Ratio 21.55 Ratio (12.00-20.00); Blood Urea Nitrogen 23.7 mg/dL (9.0-27.0); Calcium 9.4 mg/dL (8.7-10.3); Carbon Dioxide 27.1 mmol/L (21.6-31.8); Chloride 98 mmol/L (96-109); Glucose 194 mg/dL (70-110); Potassium 5.2 mmol/L (3.5-5.5); Sodium 134 mmol/L (135-145)
== END | disposition home or self-care (01) ==
LOC: LABPAT 10:55
PROVIDERS: ATTEND Orthopaedic Surgery Orthopaedic Surgery of the Spine
DX: Z01.818 Encounter for other preprocedural examination
CPT/HCPCS: 80048; 81003; 85025; 85610; 85730; 86850; 86900; 86901; 87070

== ENCOUNTER 2024-01-23 08:43 | Observation (INO) | payer MEDICARE ==
[2024-01-23] MEDS: IV FLUID CONTINUATION 1,000 ML IV ONE ×4 (09:01)
[2024-01-23 09:28] LABS: Glucose,Whole Blood 150 mg/dL (70-110)
[2024-01-23] MEDS: fentaNYL (PF) 50 MCG/ML 2 ML AMP IVP PRN (09:35)
[2024-01-23] MEDS: MIDAZOLAM 2 MG/2 ML VIAL IV ONE (09:35)
[2024-01-23] MEDS: DEXAMETHASONE SOD PHOSPHATE 4 MG/ML 1 ML VIAL IV ONE (09:40)
[2024-01-23] MEDS: LACTATED RINGERS 1,000 ML IV SCH (09:41)
[2024-01-23] MEDS: ONDANSETRON 4 MG/2 ML VIAL IVP ONE (09:41)
--- NOTE | 2024-01-23 10:27 | P.ANPRN ---
Procedure Note - Anesthesia - Invasive Line Right Central Line Time Out Performed: Yes Date of Procedure: 01/23/24 Time of Procedure: 09:34 Location of Patient: PreOp Preparation: Sterile Prep, Sterile Dressing Central Line Location: Internal Jugular Ultrasound Used: Yes Purpose - Visualization and Identification of Vasculature: Yes Image Stored and Saved: Yes Narrative: Invasive line placement per sterile protocol utilized.
--- NOTE | 2024-01-23 10:43 | XR ---
EXAMINATION TYPE: XR chest 1V portable DATE OF EXAM: 01/23/2024 Comparison: 12/11/2023 Clinical History: 68-year-old male CENTRAL LINE PLACEMENT Findings: Right IJ CVC tip lower SVC. Heart upper limits of normal in size. Mild vestigial density and peribron chial cuffing. No venita consolidation or pleural effusion. Impression: 1. Right IJ CVC tip at the lower SVC level. 2. Borderline cardiomegaly and increased interstitial/peribronchial densities. Correlate for bronchit is or mild pulmonary vascular congestion. [facility], , 01/23/2024 10:40 AM
[2024-01-23] MEDS ORDERED: PROPOFOL 10 MG/ML 20 ML VIAL IV ONE (10:55)
[2024-01-23] MEDS ORDERED: PHENYLEPHRINE 10 MG/ML VIAL ONE (10:55)
[2024-01-23] MEDS ORDERED: TRANEXAMIC 1,000 MG/100ML-NACL PREMIX BAG ONE (10:55)
[2024-01-23] MEDS ORDERED: fentaNYL (PF) 50 MCG/ML 2 ML AMP ONE (10:55)
[2024-01-23] MEDS ORDERED: HYDROmorphone (PF) 1 MG/ML ONE (10:55)
[2024-01-23] MEDS ORDERED: KETAMINE HCL IN 0.9 % NACL 50 MG/5 ML SYRINGE ONE (10:55)
[2024-01-23] MEDS ORDERED: ROCURONIUM 10 MG/ML (5 ML VIAL) IV ONE (10:55)
[2024-01-23] MEDS ORDERED: MIDAZOLAM 2 MG/2 ML VIAL ONE (10:55)
[2024-01-23] MEDS ORDERED: SUCCINYLCHOLINE CHLORIDE 200 MG/10 ML VIAL IV ONE (10:55)
[2024-01-23] MEDS ORDERED: ePHEDrine 50 MG/ML 1 ML VIAL ONE (10:55)
[2024-01-23] MEDS ORDERED: LIDOCAINE 1% INJ 10MG/ML (20 ML MDV) ONE (10:55)
[2024-01-23] MEDS: ceFAZolin 1,000 MG in SODIUM CHLORIDE 0.9% IRRIGATIO 1,000 ML IRRIGATION PRN ×2 (11:02→13:56)
[2024-01-23] MEDS: LIDOCAINE 1%-EPI 1:100,000 20 ML VIAL SQ ONE (11:32)
[2024-01-23] MEDS: THROMBIN (BOVINE) 5,000 UNIT VIAL TOPICAL ONE (11:32)
[2024-01-23] MEDS: LACTATED RINGERS 1,000 ML IV ONE ×2 (13:53→13:54)
[2024-01-23] MEDS: ceFAZolin 1,000 MG VIAL IRRIGATION ONE (14:55)
[2024-01-23] MEDS ORDERED: MAGNESIUM HYDROXIDE 2,400 MG/30 ML CUP PO PRN (16:20)
[2024-01-23] MEDS ORDERED: ONDANSETRON 4 MG/2 ML VIAL IVP PRN (16:20)
[2024-01-23] MEDS ORDERED: BENZOCAINE/MENTHOL LOZENG 1 EACH LOZENGE MUCOUS MEM PRN (16:20)
[2024-01-23] MEDS ORDERED: bisacodyL 10 MG SUPP RECTAL PRN (16:20)
[2024-01-23] MEDS ORDERED: CYCLOBENZAPRINE 10 MG TAB PO PRN (16:20)
[2024-01-23] MEDS ORDERED: diazePAM 5 MG TAB PO PRN (16:20)
[2024-01-23] MEDS ORDERED: traMADol 50 MG TAB PO PRN (16:33)
[2024-01-23 16:35] VITALS: RESP 16
[2024-01-23] MEDS: HYDROmorphone 0.5 MG/0.5 ML SYRINGE IVP PRN ×2 (16:35→19:49)
--- NOTE | 2024-01-23 16:50 | P.OP ---
Date of Procedure: 01/23/24 Preoperative Diagnosis: Scoliosis, severe spinal stenosis L1-L2 3 L3-4 L4-5 and L5-S1, history of prior laminectomy L4-5 L5-S1, degenerative disc disease, lower extremity colopathy, lower extremity weakness Postoperative Diagnosis: Same Anesthesia: GETA Pathology: none sent Condition: stable Disposition: PACU Description of Procedure: DESCRIPTION OF PROCEDURE(S): BRIEF OPERATIVE NOTE Preoperative Diagnosis: Scoliosis, severe spinal stenosis L1-L2 3 L3-4 L4-5 and L5-S1, history of prior laminectomy L4-5 L5-S1, degenerative disc disease, lower extremity colopathy, lower extremity weakness Postoperative Diagnosis: Same Procedure: Open laminectomy and decompression L1-L2 3 L3-4 Revision laminectomy and decompression L4-5 L5-S1 Computer CT navigation aided open posterior lateral decompression and fusion L1-L2 3 L3-4 L4-5 L5-S1 Transforaminal lumbar interbody fusion for a 360 fusion L3-4 Discectomy for decompression L3-4 Placement of interbody graft L3-4 Use of computer navigation for fusion Local autogenous bone grafting Aspiration of bone marrow from the vertebral body pedicle Use of bone graft extenders Surgeon: Dr. Hyatt Almond Cutting Machine Tender: Michael DECKER who is present throughout the entire the case persistence during positioning, dissection, exposure, visualization, and all crucial elements of the case as well as closure. Anesthesia: General anesthesia per Dr. Gerber Estimated blood loss: Approximately 550 mL with 125 given back from [employer] Complications: None apparent Components implanted: K2M minimally invasive Sumpter pedicle screw system withscrews measuring 6.5 mm in diameter to rods one Dumas interbody cage with 2 sheets of bone graft substitute and 30 mL of the BX bone fibers to supplement the local autogenous bone graft and bone marrow aspirate Disposition: To recovery room in good stable condition. OPERATIVE INDICATIONS The patient has had severe issues at their lower extremity in her lower back over the past several years with significant worsening over the past several months. Over the past few months the patient had pain at their back and their lower extremities. The patient is having severe radicular symptoms at their lower extremity with weakness. The patient is having significant pain in their back. He felt his pain was unsustainable and was having essentially crippling pain for him with severe spasms in his back and lower extremities. They are unable to obtain any comfort. We did aggressive conservative treatment with medications therapy and interventional pain management however thery were not having any relief. Patient had significant scoliosis with degenerative disc disease and degenerative scoliotic changes with severe spinal stenosis at multiple levels which correlated well with his low back and lower extremity symptoms. The patient also showed evidence of a listhesis with some dynamic instability. The patient has been through conservative treatment. We discussed various treatment options including surgery, and the patient wishes to proceed with surgery We discussed the risk, patient's alternatives and benefits of surgery including but not limited to, risk of bleeding risk of infection, risk of need for further surgery, risk of decreased, loss of motion, muscle function, malunion nonunion, hardware failure, nerve damage, paralysis, heart attack, blindness and . They understood issues with the current pandemic and the possibility of exposure. OPERATIVE SUMMARY After discussing all the risks, patient alternatives and benefits at length, the patient elected to proceed with surgical intervention, signed informed consent, and presented for their procedure. The patient was seen and examined in the preoperative holding area and the surgical site was marked. The patient was given antibiotics and brought to the operating room. The patient was sedated and intubated by anesthesia in standard fashion. The patient was positioned on to the operating room table in a prone position on the appropriate frame which was well-padded and well molded. We were careful to pad any bony prominences and pressure points. We were careful to maintain the patient's cervical spine and good neutral alignment and position throughout. The patient was prepped and draped in a normal standard fashion. An appropriate timeout and keystone protocol performed. We were able to proceed with the surgery. The local wound area was infiltrated with local anesthetic. I established a midline incision from L1-S1 dissected down over the spinous processes over the lamina bilaterally over the facet joints down to the trans verse processes from L1-S1. There been prior surgery at L4-S1 with significant scar tissue formation. I had good exposure at each of the levels and then we prepared for placement of screws. He is accommodation of CT-guided navigation as well as direct visualization and fluoroscopic monitoring to appropriate place screws from L1-S1 bilaterally. We then were able to place patient in an appropriate drape and do a navigation spin for visualization and 3-D reconstruction of the lumbar spine. I was able utilize C-arm guidance and navigation to establish appropriate position over the pedicles bilaterally at the appropriate levels . With the appropriate levels confirmed was able to make small incisions over the appropriate pedicle sites bilaterally. Utilizing the computer navigation device I established a clamp with a reference navigation device at the spinous process of L3 for a bony reference point for the navigation device. I was able to establish a Jamshidi needle over the lateral aspect of the pedicle and advanced the trocar into the pedicle being careful not to breech superiorly inferiorly medially or laterally using computer navigation device. Position was confirmed regularly with AP and lateral images on C-arm and with the computer navigation device at the appropriate levels bilaterally. I was able to establish the trocar into the pedicle appropriately into the poste rior aspect of the vertebral body bilaterally at the appropriate levels. This was done at each of the pedicle positions and each of the vertebrae. At the superior vertebrae I was able to take approximately 25 mL of bone aspiration for use later in the case to supplement the allograft and autograft bone. I was able place the guidewire into the trocar and into the vertebral body appropriately under C-arm guidance. Dissection was taken down over the wire to the appropriate starting position for the screw placed. I was able accomplish this at L1-L2 L3-L4-L5 and S1 bilaterally the appropriate length screw was chosen, threaded over the guidewire and screwed appropriately into the pedicle and vertebral body under C-arm guidance in excellent alignment and position with good bony purchase. This was done in 2 separate spins with easy navigation device in order to accommodate the large area of fusion. this is done at each of the screw sites at the appropriate levels.. With the screws intact I was able to turn my attention to the decompression. I took down significant scar tissue at L4-5 and L5-S1 I was able to establish lateral aspects of the laminectomies prior. I was able to take down further areas of the lamina bilaterally L4-5 and L5-S1 to get revision decompression at the neural foramen bilaterally at those levels. There is no evidence of any dural tear or leak. Good hemostasis maintained. Dissection and decompression at L1-2 L2-3 and L3-4 were done similarly taken down the midline structures and doing wide central and bilateral foraminal decompression with partial medial facetectomy. Note was made of severe central and bilateral foraminal stenosis at each of these levels most significantly at L2-3 and L3-4. At L3-4 I decided to perform a interbody fusion as this seems to be the most unstable area of the scoliosis. I dissected down to establish access over the pars and lamina to the base of the spinous process. I was able to expose the remaining the facet joint after some of the dorsal decompression. The capsule the facet was taken down and showed some facet arthrosis at the joint. I was able to use a combination of curettes and Kerrison rongeurs and a high-speed drill to take down the facet joint and do a facetectomy. I was able get excellent foraminal decompression and central decompression. I was able get good central decompression. The li gamentum flavum was taken down to further decompress centrally and at bilateral neural foramen. I was able to expose the disc space and visualize the traversing nerve root. Note was made of some disc protrusion and disc herniation that was abutting the traversing nerve root at the level causing further compression of the nerve root. I was able to establish a annulotomy at the appropriate level protecting soft tissue and neural structures. Note was made of some disc desiccation at the disc. I performed a complete discectomy with accommodation of curettes and rasps and scrapers. I was able get good endplate preparation at the disc space. I sized for the appropriate size interbody spacer protecting the soft tissue and neural structures. The wound was copiously irrigated and suctioned dry. There is no evidence of any dural tear or leak. I was able to pack the disc space with local autogenous bone graft as well as a small amount of bone graft which was also placed into the interbody cage itself. Protecting the soft tissue structures and neural structures I was able place the interbody cage in good alignment and good position with good fit and fill at the interbody space. Position was confirmed with C-arm guidance. Good hemostasis maintained. There is no evidence of any dural tear or leak. The wound was irrigated and suctioned dry. With the hardware intact, intraoperative C-arm imaging was again taken which showed good alignment and position of the hardware at the appropriate levels from L1-S1. We were then able to measure, contour and place the rods and appropriate hardware bilaterally. I was able achieve some correction of the scoliosis. I was able to place capcrews, tighten them down, and torque them with the torque screwdriver appropriately. With this intact I was able to place the local autogenous bone graft with additional bone graft enhancer as necessary into the posterior lateral gutters over the decorticated transverse processes and facet joints bilaterally. The remainder of the bone graft was placed over the facet joint on the contralateral side after taking down the facet joint capsule. With the bone graft intact, a stable construct, and good decompression at the appropriate levels, we were able to proceed with closure. Good hemostasis was maintained. There is no evidence of dural tear or leak. The fascia was closed for a watertight closure. he subcuticular tissue was closed with absorbable suture. The wound was cleaned and dried and dressed with the appropriate dressing. The drapes were broken down. The patient was gently rolled back onto their hospital bed being careful to maintain their cervical spine and good neutral alignment and position. They were woken up by anesthesia, extubated, and brought to the recovery room in good stable condition. The patient will be admitted to the hospital for appropriate postoperative care, medical management and monitoring. We will continue to follow them closely about the postoperative course.
[2024-01-23 16:56] LABS: Glucose,Whole Blood 190 mg/dL (70-110)
[2024-01-23] MEDS: diazePAM 5 MG TAB PO PRN (17:07)
--- NOTE | 2024-01-23 17:12 | FL ---
EXAMINATION TYPE: FL guidance operating room, XR lumbar spine 2 or 3V DATE OF EXAM: 01/23/2024 5:07 PM COMPARISON: Pre Operative Images if available both CT/MRI or plain film CLINICAL INDICATION: Male, 68 years old with history of SPINAL STENOSIS; TECHNIQUE: FL guidance operating room, XR lumbar spine 2 or 3V, multiple fluoroscopic images provided for procedure. Total fluoroscopy time: 48 seconds Total submitted images to PACS: 11 DAP: [id number] mGym2 Gycm2 uGym2 cGycm2 or equivalent. FINDINGS: Fluoroscopic images during internal fixation/arthroplasty demonstrate fixation hardware in appropriat e position. Hardware appears intact. No immediate complication identified. IMPRESSION: 1. No evidence for intraoperative complication. 2. Please see the operative/procedural note for further details. [facility], , 01/23/2024 5:10 PM
[2024-01-23] MEDS: IXAZOMIB CITRATE 4 MG PO SCH (18:37)
[2024-01-23] MEDS: SODIUM CHLORIDE 0.9% 1,000 ML IV SCH (18:37)
[2024-01-23 20:59] LABS: Glucose,Whole Blood 171 mg/dL (70-110)
[2024-01-23] MEDS: ACETAMINOPHEN TAB 325 MG TAB PO SCH (21:24)
[2024-01-23] MEDS: ACYCLOVIR 200 MG CAP PO SCH (21:24)
[2024-01-23] MEDS: GLIMEPIRIDE 1 MG TAB PO SCH (21:24)
[2024-01-23] MEDS: HYDROcodone/APAP 5-325MG 1 EACH TAB PO PRN (23:25)
[2024-01-24] MEDS: HYDROmorphone 1 MG/ML 1 ML SYRINGE IVP PRN (00:54)
[2024-01-24 06:56] LABS: Glucose,Whole Blood 137 mg/dL (70-110)
[2024-01-24] MEDS: MAGNESIUM OXIDE 400 MG TAB PO SCH (08:08)
[2024-01-24] MEDS: ASPIRIN 81 MG PO SCH (08:08)
[2024-01-24] MEDS: lisinopriL 20 MG TAB PO SCH (08:08)
[2024-01-24] MEDS: GLIMEPIRIDE 2 MG TAB PO SCH (08:08)
[2024-01-24] MEDS: SENNOSIDES-DOCUSATE SODIUM 1 EACH TAB PO SCH (08:08)
[2024-01-24] MEDS: ATORVASTATIN 20 MG TAB PO SCH (08:08)
[2024-01-24 08:19] VITALS: BP 171/68; PULSE 78; TEMP 98.4
[2024-01-24 08:23] LABS: HCT 32.9 % (39.6-50.0); MCH 35.4 pg (27.0-32.0); MCHC 33.4 g/dL (32.0-37.0); MCV 105.8 FL (80.0-97.0); Mean Platelet Volume 9.7 FL (9.5-12.2); NRBC Per 100 WBC 0 X 10*3/uL (0.00-0.01); Platelet Count 260 X 10*3/uL (140-440); RBC 3.11 X 10*6/uL (4.40-5.60); RDW 15.4 % (11.5-14.5); WBC 12.72 X 10*3/uL (4.50-10.00)
[2024-01-24 09:04] LABS: Blood Urea Nitrogen 17.9 mg/dL (9.0-27.0); Calcium 8.1 mg/dL (8.7-10.3); Carbon Dioxide 26.2 mmol/L (21.6-31.8); Chloride 100 mmol/L (96-109); Glucose 153 mg/dL (70-110); Sodium 135 mmol/L (135-145)
[2024-01-24 09:09] LABS: Basophils # (A) 0.01 X 10*3/uL (0.00-0.10); Basophils % (A) 0.1 %; Eosinophils # (A) 0.02 X 10*3/uL (0.04-0.35); Eosinophils % (A) 0.2 %; Lymphocytes # (A) 0.73 X 10*3/uL (0.90-5.00); Lymphocytes % (A) 5.7 %; Macrocytosis (M) 2+; Monocytes # (A) 1.11 X 10*3/uL (0.20-1.00); Monocytes % (A) 8.7 %; Neutrophils # (A) 10.79 X 10*3/uL (1.80-7.70); Neutrophils % (A) 84.8 %
[2024-01-24] MEDS: TAMSULOSIN 0.4 MG CAP.ER.24H PO STA (10:57)
--- NOTE | 2024-01-24 11:02 | P.DS ---
Providers Date of admission: 01/24/24 12:14 01/23/2024 Expected date of discharge: 01/24/24 Attending physician: Nahun Hyatt Consults: 01/23/24 16:20 Consult Physician Routine Consulting Provider: Kymberly Vale Consult Reason/Comments: Medical management Do you want consulting provider notified?: Yes Primary care physician: Brian Murdock - Discharge Diagnosis(es) (1) Lumbar spinal stenosis The patient is seen and examined today at bedside. He is very happy with his results so far. He is standing up and walking in his room well. He says his back is painful at the surgical site but he is handling this very nicely. He is very happy with the way his legs feel. He is tolerating his diet and voiding freely. He would like to go home today and I think that is reasonable. Will have close follow-up and oral pain medications for him. He is given appropriate discharge directions. Current Visit: Yes Status: Acute (2) Lumbar back pain with radiculopathy affecting lower extremity Current Visit: Yes Status: Acute (3) Lumbar facet arthropathy Current Visit: Yes Status: Acute (4) Lumbar degenerative disc disease Current Visit: Yes Status: Acute (5) Scoliosis Current Visit: Yes Status: Acute (6) Status post lumbar spinal fusion Current Visit: Yes Status: Acute (7) Lower extremity weakness Current Visit: Yes Status: Acute (8) History of laminectomy Current Visit: Yes Status: Acute (9) Type 2 diabetes mellitus Current Visit: Yes Status: Acute (10) History of melanoma Current Visit: Yes Status: Acute Hospital Course: This is a pleasant 68-year-old male who presented with L1-2, L2-3, L3-4, L4-5, and L5-S1 severe spinal stenosis, scoliosis, history of previous laminectomy L4- 5 and L5-S1, lumbar degenerative disc disease, lower extremity radiculopathy, low back pain, and lower extremity weakness who failed outpatient conservative therapy. He was admitted for an open posterior lateral decompression and fusion at L1-2, L2-3, L3-4, L4-5, and L5-S1 with L3-4 transforaminal lumbar interbody fusion and revision laminectomy at L4-5 and L5-S1. The patient tolerated the procedure well and did well postoperatively. He states his lower extremity radiculopathy has significantly improved. He is very happy with his progress. He is not complaining of any lower extremity pain. His low back pain has been controlled with oral medications. He has been able to ambulate the hallways. His Solares catheter was discontinued this morning. He states he has been able to void independently. He is ready for discharge today. Condition on day of discharge stable. Patient will be discharged home. Patient was cleared preoperatively for surgery by medicine. Patient currently denies any nausea, vomiting, fever, or chills. Patient is eating and voiding freely without difficulty. Patient may shower Optifoam dressing intact. Patient may remove Optifoam dressing in 3 days and shower without a dressing at that time. Patient should refrain from driving until at least after their first follow-up appointment in the office. Hemovac drain is removed at the bedside. No active drainage from the Hemovac drain removal site. Patient should avoid excessive bending, lifting, and twisting; no lifting greater than 10 pounds. Patient has a walker at home. He may utilize this walker to aid in ambulation as needed. He did have a right central line placed by anesthesia prior to surgical intervention. This must be discontinued by anesthesia prior to discharge home. Patient will be seen by medicine today. We did discuss patient will need clearance by medicine prior to discharge home. MAPS has been reviewed today, 01/24/2024, with an Overall Overdose Risk Score of . An "Opiod Start Talking" Form has been signed and placed in the patient's chart. A prescription has been written for hydrocodone 5 mg / 325 mg, 1 tab, every 4 hours, as needed for acute pain, dispense #42. Prescription written for baclofen 10 mg, 1 tab, 3 times daily, as needed for muscle spasm, dispense #60. Prescription written for Senokot-S, 1 tab, twice daily, as needed for constipation, dispense #60. Prescriptions are sent to the patient's regular pharmacy per request of the patient. Patient's other medical diagnoses include type 2 diabetes and history of melanoma carcinoma. Physical Exam on day of discharge: Patient is awake, alert, and oriented 3 Vital signs stable Good chest excursion with deep inspiration and expiration Extensor hallucis longus, plantarflexion, and dorsiflexion positive sustained bilateral lower extremities Patient is able to stand at the bedside and ambulate with the assistance of a walker without any significant difficulty Hemovac drain is removed at the bedside No drainage from the Hemovac drain removal site Dressing is reapplied with gauze and Tegaderm over the Hemovac drain removal site Incision is clean, dry, and intact; no erythema, purulence, or signs of infection Optifoam dressing intact Procedures: Open posterior lateral decompression and fusion at L1-2, L2-3, L3-4, L4-5, and L5-S1 with L3-4 transforaminal lumbar interbody fusion and revision laminectomy at L4-5 and L5-S1 Patient Condition at Discharge: Stable Plan - Discharge Summary Discharge Rx Participant: No New Discharge Prescriptions: New Baclofen 10 mg PO TID PRN #60 tab PRN Reason: Spasms HYDROcodone/APAP 5-325MG [[place] 5] 1 each PO Q4HR PRN #42 tab PRN Reason: Pain Sennosides-Docusate Sodium [Senokot-S] 1 tab PO BID PRN #60 tablet PRN Reason: Constipation Tamsulosin [Flomax] 0.4 mg PO DAILY 7 Days #7 cap Continue Aspirin [Adult Low Dose Aspirin EC] 81 mg PO DAILY traMADol HCL 50 mg PO DIRECTED PRN PRN Reason: Pain Acetaminophen [Tylenol Arthritis] 650 mg PO BID Magnesium 100 mg PO DAILY Acyclovir [Zovirax] 400 mg PO BID lisinopriL [Zestril] 20 mg PO QAM Glimepiride 1 mg PO HS Atorvastatin Calcium 20 mg PO QAM Glimepiride 2 mg PO QAM Ixazomib Citrate [Ninlaro] 4 mg PO DIRECTED Discharge Medication List Acyclovir [Zovirax] 400 mg PO BID 04/23/23 [History] Aspirin [Adult Low Dose Aspirin EC] 81 mg PO DAILY 04/23/23 [History] Glimepiride 1 mg PO HS 04/23/23 [History] lisinopriL [Zestril] 20 mg PO QAM 04/23/23 [History] Acetaminophen [Tylenol Arthritis] 650 mg PO BID 12/12/23 [History] Atorvastatin Calcium 20 mg PO QAM 12/12/23 [History] Glimepiride 2 mg PO QAM 12/12/23 [History] traMADol HCL 50 mg PO DIRECTED PRN 12/12/23 [History] Ixazomib Citrate [Ninlaro] 4 mg PO DIRECTED 01/16/24 [History] Magnesium 100 mg PO DAILY 01/18/24 [History] Baclofen 10 mg PO TID PRN #60 tab 01/24/24 [Rx] HYDROcodone/APAP 5-325MG [[place] 5] 1 each PO Q4HR PRN #42 tab 01/24/24 [Rx] Sennosides-Docusate Sodium [Senokot-S] 1 tab PO BID PRN #60 tablet 01/24/24 [Rx] Tamsulosin [Flomax] 0.4 mg PO DAILY 7 Days #7 cap 01/24/24 [Rx] Follow up Appointment(s)/Referral(s): Michael Torres PAC [PHYSICIAN TRAFFIC ANALYST] - 02/08/24 1:00 pm (Patient may follow-up with Michael Torres PA-C or Dr. Iain Hyatt at [facility] in 2-3 weeks following discharge. ) Brian Murdock DO [Primary Care Provider] - 02/05/24 9:00 am Activity/Diet/Wound Care/Special Instructions: 1. Patient may shower with Optifoam dressing intact. 2. Patient may remove Optifoam dressing in 3 days and shower without a dressing at that time. 3. Patient should refrain from driving until at least after their first follow-up appointment in the office. 4. Patient should avoid excessive bending, twisting, lifting; avoid overhead lifting; no lifting greater than 10 pounds 5. Take medications as prescribed 6. Patient should avoid anti-inflammatory medications over the next 6 weeks postoperatively 7. Patient may utilize walker to aid in ambulation as needed 8. Do not soak in tub
[2024-01-24 11:36] LABS: Glucose,Whole Blood 186 mg/dL (70-110)
--- NOTE | 2024-01-24 12:07 | P.CONS ---
History of Present Illness - Reason for Consult Consult date: 01/24/24 Medical management, status post laminectomy and decompression L1-4 - History of Present Illness This is a very pleasant 68-year-old male who was recently admitted under orthopedic services Dr. Hyatt for scoliosis with severe spinal stenosis of L1-5 and L5-S1. Patient has previous past medical history of prior laminectomy of the L4-5 and L5-1 along with degenerative disc disease and lower extremity radiculopathy with weakness and patient reports he has been unable to ambulate for over 6 months. Patient follows with Dr. Murdock in the outpatient setting with a past medical history of multiple myeloma (follows with [facility], currently in remission), diabetes melitis, hyperlipidemia, hypertension, osteoarthritis. Patient denies any alcohol drug or smoking use and reports he quit over 2 years ago. On exam patient is afebrile able to ambulate and recently had IJ catheter removed from the neck with no active bleeding noted and has had the Solares catheter removed and is voiding with some dribbling. Will initiate Flomax. Patient is extremely anxious to go home today. REVIEW OF SYSTEMS: CONSTITUTIONAL: No fever, no malaise, no fatigue. HEENT: No recent visual problems or hearing problems. Denied any sore throat. CARDIOVASCULAR: No chest pain, orthopnea, PND, no palpitations, no syncope. PULMONARY: No shortness of breath, reports chronic cough occasionally, no hemoptysis. GASTROINTESTINAL: No diarrhea, no nausea, no vomiting, no abdominal pain. NEUROLOGICAL: No headaches, no weakness, no numbness. HEMATOLOGICAL: Denies any bleeding or petechiae. GENITOURINARY: Denies any burning micturition, frequency, or urgency. MUSCULOSKELETAL/RHEUMATOLOGICAL: Denies any joint pain, swelling, or any muscle pain. ENDOCRINE: Denies any polyuria or polydipsia. The rest of the 14-point review of systems is negative. PHYSICAL EXAMINATION: GENERAL: The patient is alert and oriented x3, not in any acute distress. Well developed, thin built, elderly appearing HEENT: Pupils are round and equally reacting to light. EOMI. No scleral icterus. No conjunctival pallor. Normocephalic, atraumatic. No pharyngeal erythema. No thyromegaly. CARDIOVASCULAR: S1 and S2 muffled PULMONARY: Diminished breath sounds bilaterally otherwise chest is clear to auscultation, a few scattered rhonchi noted at the bases ABDOMEN: Soft, thin, nontender, nondistended, normoactive bowel sounds. No palpable organomegaly. MUSCULOSKELETAL: No joint swelling or deformity. EXTREMITIES: No cyanosis, clubbing, or pedal edema. NEUROLOGICAL: Gross neurological examination did not reveal any focal deficits. SKIN: No rashes. Assessment: Status post L1-4 laminectomy with decompression along with revision of L4-S1, postop day 1 History of degenerative disc disease History of multiple myeloma and follows with Dr. High outpatient, currently in remission Hyperlipidemia history Hypertension history History of diabetes mellitus Former smoker, reports quitting 2 years ago GI prophylaxis DVT prophylaxis Full code Plan: Patient was admitted under orthopedic services status post laminectomy with decompression and revision of previous surgical site was able to work with physical therapy and has been up and walking the halls multiple times. Patient reports he has not walked in over 6 months Patient having some dribbling post Solares removal and will add Flomax recommend the next few days Patient to follow-up with primary care provider outpatient Home medications reviewed and resumed as appropriate Recommend incentive spirometer use at least 10 times every hour while awake Patient is medically stable once cleared for discharge from orthopedics Thank you kindly for this consultation. We will continue to follow with o rthopedics during hospitalization. The impression and plan of care has been dictated by Kay Rodriguez, Nurse Practitioner as directed. Dr. Arielle MD I have performed a history and examination and MDM of this patient, discussed the same with the dictator, and agree with the dictator's assessment and plan as written ,documented as a scribe. Based on total visit time, I have performed more than 50% of the visit. Past Medical History Past Medical History: Cancer, Diabetes Mellitus, Hyperlipidemia, Hypertension, Osteoarthritis (OA) Additional Past Medical History / Comment(s): past hx. hand & foot fractures in his 20's, hx. multiple myeloma 2 yrs. ago-currently in remission, degenerative disc disease, this surgery was rescheduled History of Any Multi-Drug Resistant Organisms: None Reported Past Surgical History: Back Surgery, Orthopedic Surgery Additional Past Surgical History / Comment(s): r shoulder surgery Past Anesthesia/Blood Transfusion Reactions: No Reported Reaction Smoking Status: Never smoker - Past Family History Mother Family Medical History: No Reported History Medications and Allergies Home Medications Medication Instructions Recorded Confirmed Type Acyclovir [Zovirax] 400 mg PO BID 04/23/23 01/23/24 History Aspirin [Adult Low Dose Aspirin EC] 81 mg PO DAILY 04/23/23 01/23/24 History Glimepiride 1 mg PO HS 04/23/23 01/23/24 History lisinopriL [Zestril] 20 mg PO QAM 04/23/23 01/23/24 History Acetaminophen [Tylenol Arthritis] 650 mg PO BID 12/12/23 01/23/24 History Atorvastatin Calcium 20 mg PO QAM 12/12/23 01/23/24 History Glimepiride 2 mg PO QAM 12/12/23 01/23/24 History traMADol HCL 50 mg PO DIRECTED PRN 12/12/23 01/23/24 History Ixazomib Citrate [Ninlaro] 4 mg PO DIRECTED 01/16/24 01/23/24 History Magnesium 100 mg PO DAILY 01/18/24 01/23/24 History Baclofen 10 mg PO TID PRN #60 tab 01/24/24 Rx HYDROcodone/APAP 5-325MG [[place] 5] 1 each PO Q4HR PRN #42 tab 01/24/24 Rx Sennosides-Docusate Sodium 1 tab PO BID PRN #60 tablet 01/24/24 Rx [Senokot-S] Tamsulosin [Flomax] 0.4 mg PO DAILY 7 Days #7 cap 01/24/24 Rx Allergies Allergy/AdvReac Type Severity Reaction Status Date / Time No Known Allergies Allergy Verified 01/23/24 08:59 Physical Exam Vitals: Vital Signs Temp Pulse Resp BP Pulse Ox 01/24/24 08:00 98.4 F 78 16 171/68 93 L 01/24/24 02:00 98.1 F 78 149/70 97 01/23/24 20:00 98.8 F 81 130/73 94 L 01/23/24 17:57 98.4 F 75 112/73 95 01/23/24 17:33 72 16 106/53 97 01/23/24 17:15 78 16 109/55 97 01/23/24 17:00 83 16 107/50 96 01/23/24 16:45 90 16 115/57 98 01/23/24 16:25 98.5 F 80 16 157/74 99 01/23/24 10:23 66 14 110/53 92 L Intake and Output 01/23/24 01/24/24 01/24/24 22:59 06:59 14:59 Intake Total 400 900 Output Total 550 680 Balance -150 220 Intake: IV 400 Intake, IV Titration 900 Amount Sodium Chloride 0.9% 1, 900 000 ml @ 75 mls/hr IV . [id number] [facility] Rx#:[id number] Output: Drainage 80 Back 80 Urine 600 Estimated Blood Loss 550 Other: Voiding Method Indwelling Catheter Weight 80.3 kg Results CBC & Chem 7: 01/24/24 03:14 01/24/24 03:14 Labs: Abnormal Lab Results - Last 24 Hours (Table) 01/23/24 01/23/24 01/24/24 Range/Units 16:55 20:57 03:14 WBC 12.72 H (4.50-10.00) X 10*3/uL RBC 3.11 L (4.40-5.60) X 10*6/uL Hgb 11.0 L (13.0-17.0) g/dL Hct 32.9 L (39.6-50.0) % MCV 105.8 H (80.0-97.0) FL MCH 35.4 H (27.0-32.0) pg RDW 15.4 H (11.5-14.5) % Immature Gran # 0.06 H (0.00-0.04) X 10*3/uL Neutrophils # 10.79 H (1.80-7.70) X 10*3/uL Lymphocytes # 0.73 L (0.90-5.00) X 10*3/uL Monocytes # 1.11 H (0.20-1.00) X 10*3/uL Eosinophils # 0.02 L (0.04-0.35) X 10*3/uL Macrocytosis (manual) 2+ A Glucose (70-110) mg/dL POC Glucose (mg/dL) 190 H 171 H (70-110) mg/dL Calcium (8.7-10.3) mg/dL 01/24/24 01/24/24 Range/Units 03:14 06:53 WBC (4.50-10.00) X 10*3/uL RBC (4.40-5.60) X 10*6/uL Hgb (13.0-17.0) g/dL Hct (39.6-50.0) % MCV (80.0-97.0) FL MCH (27.0-32.0) pg RDW (11.5-14.5) % Immature Gran # (0.00-0.04) X 10*3/uL Neutrophils # (1.80-7.70) X 10*3/uL Lymphocytes # (0.90-5.00) X 10*3/uL Monocytes # (0.20-1.00) X 10*3/uL Eosinophils # (0.04-0.35) X 10*3/uL Macrocytosis (manual) Glucose 153 H (70-110) mg/dL POC Glucose (mg/dL) 137 H (70-110) mg/dL Calcium 8.1 L (8.7-10.3) mg/dL
[2024-01-24] MEDS ORDERED: HYDROmorphone 2 MG/ML 1 ML SYRINGE IVP PRN (12:23)
== END 2024-01-24 13:50 | disposition home or self-care (01) ==
LOC: OR 08:43 → 4SSUR 16:58 → OR 01-24 12:14 → 4SSUR 01-24 12:14
PROVIDERS: ADMIT Orthopaedic Surgery Orthopaedic Surgery of the Spine; ATTEND Orthopaedic Surgery Orthopaedic Surgery of the Spine
DX: M48.062 Spinal stenosis, lumbar region with neurogenic claudication (principal); M51.16 Intervertebral disc disorders with radiculopathy, lumbar region; M47.26 Other spondylosis with radiculopathy, lumbar region; M41.56 Other secondary scoliosis, lumbar region; M16.0 Bilateral primary osteoarthritis of hip; E11.9 Type 2 diabetes mellitus without complications; E78.5 Hyperlipidemia, unspecified; I10 Essential (primary) hypertension; Z79.82 Long term (current) use of aspirin; Z79.84 Long term (current) use of oral hypoglycemic drugs; Z79.899 Other long term (current) drug therapy; Z85.820 Personal history of malignant melanoma of skin; Z87.891 Personal history of nicotine dependence; Z85.79 Personal history of other malignant neoplasms of lymphoid, hematopoietic and related tissues
CPT/HCPCS: 22630; 22632 ×4; 22853; 20930; 20936; 22842; 97161; 86891; 80048; 85025; 72100; 71045; G0378; P9022; C1713 ×2; J2250; J0330; J1100; J0690 ×3; J2405; J2003; J3010; J1171 ×3; J2704; J2371

== ENCOUNTER 2024-01-24 18:09 | Emergency (ER) | payer MEDICARE ==
--- NOTE | 2024-01-24 18:30 | ED ---
Recheck HPI - General Stated Complaint: pain Time Seen by Provider: 01/24/24 18:15 Source: RN notes reviewed, old records reviewed Limitations: no limitations - History of Present Illness Initial Comments: This is a 68-year-old male to the ER for evaluation patient presents today for evaluation of severe back pain his back pain occurred after recent back surgery. No acute injury, patient was just discharged from the hospital. Patient denies fever states he complains of nausea and vomiting, patient is concerned that his home medications pain for pain caused him nausea and vomiting MD Complaint: medication refill request -: hour(s) Returns Today for: persistent/worsening pain related to initial visit Symptoms Since Prior Visit: worsening pain Associated Symptoms: none Treatments Prior to Arrival: Given Pain Meds on - Related Data Home Medications Medication Instructions Recorded Confirmed Acyclovir [Zovirax] 400 mg PO BID 04/23/23 01/23/24 Aspirin [Adult Low Dose Aspirin EC] 81 mg PO DAILY 04/23/23 01/23/24 Glimepiride 1 mg PO HS 04/23/23 01/23/24 lisinopriL [Zestril] 20 mg PO QAM 04/23/23 01/23/24 Acetaminophen [Tylenol Arthritis] 650 mg PO BID 12/12/23 01/23/24 Atorvastatin Calcium 20 mg PO QAM 12/12/23 01/23/24 Glimepiride 2 mg PO QAM 12/12/23 01/23/24 traMADol HCL 50 mg PO DIRECTED PRN 12/12/23 01/23/24 Ixazomib Citrate [Ninlaro] 4 mg PO DIRECTED 01/16/24 01/23/24 Magnesium 100 mg PO DAILY 01/18/24 01/23/24 Previous Rx's Medication Instructions Recorded Baclofen 10 mg PO TID PRN #60 tab 01/24/24 HYDROcodone/APAP 5-325MG [[place] 5] 1 each PO Q4HR PRN #42 tab 01/24/24 Prochlorperazine [Compazine] 10 mg PO Q8H #30 tab 01/24/24 Sennosides-Docusate Sodium 1 tab PO BID PRN #60 tablet 01/24/24 [Senokot-S] Tamsulosin [Flomax] 0.4 mg PO DAILY 7 Days #7 cap 01/24/24 traMADol HCl [Ultram] 100 mg PO Q6HR PRN 3 Days #24 tab 01/24/24 Allergies Allergy/AdvReac Type Severity Reaction Status Date / Time No Known Allergies Allergy Verified 01/23/24 08:59 Review of Systems ROS Statement: Those systems with pertinent positive or pertinent negative responses have been documented in the HPI. ROS Other: All systems not noted in ROS Statement are negative. Past Medical History Past Medical History: Cancer, Diabetes Mellitus, Hyperlipidemia, Hypertension, Osteoarthritis (OA) Additional Past Medical History / Comment(s): past hx. hand & foot fractures in his 20's, hx. multiple myeloma 2 yrs. ago-currently in remission, degenerative disc disease, this surgery was rescheduled History of Any Multi-Drug Resistant Organisms: None Reported Past Surgical History: Back Surgery, Orthopedic Surgery Additional Past Surgical History / Comment(s): r shoulder surgery Past Anesthesia/Blood Transfusion Reactions: No Reported Reaction Smoking Status: Never smoker - Past Family History Mother Family Medical History: No Reported History General Exam General appearance: alert, in no apparent distress Head exam: Present: atraumatic, normocephalic, normal inspection Eye exam: Present: normal appearance, PERRL, EOMI. Absent: scleral icterus, conjunctival injection, periorbital swelling ENT exam: Present: normal exam, mucous membranes moist Neck exam: Present: normal inspection. Absent: tenderness, meningismus, lymphadenopathy Respiratory exam: Present: normal lung sounds bilaterally. Absent: respiratory distress, wheezes, rales, rhonchi, stridor Cardiovascular Exam: Present: regular rate, normal rhythm, normal heart sounds. Absent: systolic murmur, diastolic murmur, rubs, gallop, clicks GI/Abdominal exam: Present: soft, normal bowel sounds. Absent: distended, tenderness, guarding, rebound, rigid Extremities exam: Present: normal inspection, full ROM, normal capillary refill. Absent: tenderness, pedal edema, joint swelling, calf tenderness Back exam: Present: normal inspection Neurological exam: Present: alert, oriented X3, CN II-XII intact Psychiatric exam: Present: normal affect, normal mood Skin exam: Present: warm, dry, intact, normal color. Absent: rash Course Vital Signs 01/24/24 01/24/24 01/24/24 18:30 18:45 18:50 Temperature 99.7 F H Pulse Rate 84 77 Respiratory 16 18 Rate Blood Pressure 119/66 142/72 O2 Sat by Pulse 99 86 L 95 Oximetry 01/24/24 01/24/24 01/24/24 18:53 19:21 19:56 Temperature 99.3 F Pulse Rate 88 108 H Respiratory 17 18 Rate Blood Pressure 168/81 147/64 O2 Sat by Pulse 97 96 97 Oximetry - Reevaluation(s) Reevaluation #1: 01/24/24 18:30 Medical records reviewed Reevaluation #2: 01/24/24 18:30 Patient symptoms improved Reevaluation #3: 01/24/24 19:48 Patient informed of results and questions were answered Reevaluation #4: Was pt. sent in by a medical professional or institution (JERONIMO Aden, OPERATIONS MANAGER, urgent care, hospital, or correction...) When possible be specific @ -no Did you speak to anyone other than the patient for history (EMS, parent, family, police, friend...)? What history was obtained from this source @ -no Did you review nursing and triage notes (agree or disagree)? Why? @ -agree Are old charts reviewed (outside hosp., previous admission, EMS record, old EKG, old radiological studies, urgent care reports/EKG's, correction records)? Report findings @ -yes Differential Diagnosis (chest pain, altered mental status, abdominal pain women, abdominal pain men, vaginal bleeding, weakness, fever, dyspnea, syncope, headache, dizziness, GI bleed, back pain, seizure, CVA, palpatations, mental health, musculoskeletal)? @ -prior EKG interpreted by me (3pts min.). @ -no X-rays interpreted by me (1pt min.). @ -no CT interpreted by me (1pt min.). @ -no U/S interpreted by me (1pt. min.). @ -no What testing was considered but not performed or refused? (CT, X-rays, U/S, labs)? Why? @ -none What meds were considered but not given or refused? Why? @ -none Did you discuss the management of the patient with other professionals (prof essionals i.e. JERONIMO Aden, OPERATIONS MANAGER, lab, RT, psych nurse, social security specialist, guide setter, teacher, wildlife officer, case advocate)? Give summary @ -no Was smoking cessation discussed for >3mins.? @ -no Was critical care preformed (if so, how long)? @ -no Were there social determinants of health that impacted care today? How? (Homelessness, low income, unemployed, alcoholism, drug addiction, transportation, low edu. Level, literacy, decrease access to med. care, halfway, rehab)? @ -none Was there de-escalation of care discussed even if they declined (Discuss DNR or withdrawal of care, Hospice)? DNR status @ -no What co-morbidities impacted this encounter? (DM, HTN, Smoking, COPD, CAD, Cancer, CVA, ARF, Chemo, Hep., AIDS, mental health diagnosis, sleep apnea, morbid obesity)? @ -none Was patient admitted / discharged? Hospital course, mention meds given and route, prescriptions, significant lab abnormalities, going to OR and other pertinent info. @ - 68 male to ER for evaluation of postoperative pain. Nausea vomiting pain is controlled patient can be discharged home Discharge Undiagnosed new problem with uncertain prognosis? @ -no Drug Therapy requiring intensive monitoring for toxicity (Heparin, Nitro, Insulin, Cardizem)? @ -no Were any procedures done? @ -no Diagnosis/symptom? @ -Postoperative pain Acute, or Chronic, or Acute on Chronic? @ -Acute Uncomplicated (without systemic symptoms) or Complicated (systemic symptoms)? @ -Complicated Side effects of treatment? @ -no Exacerbation, Progression, or Severe Exacerbation? @ -exacerbation Poses a threat to life or bodily function? How? (Chest pain, [place], [place], pneumonia, PE, COPD, DKA, ARF, appy, cholecystitis, CVA, Diverticulitis, Homicidal, Suicidal, threat to staff... and all critical care pts) @ -no Reevaluation #5: Differential Back Pain: Strain, zoster, cauda equina syndrome, epidural abscess, vertebral osteomyelitis, discitis, fracture, subluxation, disc herniation, DJD, spinal stenosis, dissection, AAA, pancreatitis, peptic ulcer disease, pyelonephritis, kidney stone, this is not meant to be an all-inclusive list. Medical Decision Making - Medical Decision Making 68 male to ER for evaluation of postoperative pain. Nausea vomiting pain is controlled patient can be discharged home - Lab Data Result diagrams: 01/24/24 18:47 01/24/24 18:47 Lab Results 01/24/24 01/24/24 Range/Units 18:47 18:47 WBC 10.6 (3.8-10.6) k/uL RBC 3.10 L (4.30-5.90) m/uL Hgb 11.0 L (13.0-17.5) gm/dL Hct 32.2 L (39.0-53.0) % MCV 104.0 H (80.0-100.0) fL MCH 35.6 H (25.0-35.0) pg MCHC 34.2 (31.0-37.0) g/dL RDW 14.9 (11.5-15.5) % Plt Count 250 (150-450) k/uL MPV 7.6 Neutrophils % 87 % Lymphocytes % 6 % Monocytes % 6 % Eosinophils % 1 % Basophils % 0 % Neutrophils # 9.2 H (1.3-7.7) k/uL Lymphocytes # 0.6 L (1.0-4.8) k/uL Monocytes # 0.6 (0-1.0) k/uL Eosinophils # 0.1 (0-0.7) k/uL Basophils # 0.0 (0-0.2) k/uL Macrocytosis Slight Sodium 128 L (137-145) mmol/L Potassium 4.4 (3.5-5.1) mmol/L Chloride 103 (98-107) mmol/L Carbon Dioxide 24 (22-30) mmol/L Anion Gap 1 mmol/L BUN 17 (9-20) mg/dL Creatinine 0.88 (0.66-1.25) mg/dL Est GFR (CKD-EPI)AfAm >90 (>60 ml/min/1.73 sqM) Est GFR (CKD-EPI)NonAf 88 (>60 ml/min/1.73 sqM) Glucose 158 H (74-99) mg/dL Calcium 7.9 L (8.4-10.2) mg/dL Phosphorus 2.9 (2.5-4.5) mg/dL Magnesium 2.0 (1.6-2.3) mg/dL Total Bilirubin 1.1 (0.2-1.3) mg/dL AST 53 (17-59) U/L ALT 38 (4-49) U/L Alkaline Phosphatase 81 (38-126) U/L Total Protein 5.2 L (6.3-8.2) g/dL Albumin 3.1 L (3.5-5.0) g/dL Serum Alcohol <10 mg/dL Disposition Clinical Impression: Nausea & vomiting, Postoperative pain Disposition: HOME SELF-CARE Condition: Good Instructions (If sedation given, give patient instructions): Acute Low Back Pain (ED) Prescriptions: Prochlorperazine [Compazine] 10 mg PO Q8H #30 tab traMADol HCl [Ultram] 100 mg PO Q6HR PRN 3 Days #24 tab PRN Reason: Pain Is patient prescribed a controlled substance at d/c from ED?: No Referrals: Brian Murdock DO [Primary Care Provider] - 1-2 days Time of Disposition: 19:35
[2024-01-24] MEDS: SODIUM CHLORIDE 0.9% 1,000 ML IV STA (18:48)
[2024-01-24] MEDS: KETOROLAC 15 MG/ML 1 ML VIAL IVP STA (18:49)
[2024-01-24] MEDS: PROCHLORPERAZINE INJ 10 MG/2 ML VIAL IVP STA (18:50)
[2024-01-24] MEDS: HYDROmorphone 1 MG/ML 1 ML SYRINGE IVP STA (18:51)
[2024-01-24 19:11] LABS: ALT 38 U/L (4-49); African American GFR (CKD) >90 (>60 ml/min/1.73 sqM); Albumin 3.1 g/dL (3.5-5.0); Alcohol <10 mg/dL; Anion Gap 1 mmol/L; Blood Urea Nitrogen 17 mg/dL (9-20); Calcium 7.9 mg/dL (8.4-10.2); Carbon Dioxide 24 mmol/L (22-30); Chloride 103 mmol/L (98-107); Glucose 158 mg/dL (74-99); Non-African American GFR(CKD) 88 (>60 ml/min/1.73 sqM); Sodium 128 mmol/L (137-145); Total Bilirubin 1.1 mg/dL (0.2-1.3); Total Protein 5.2 g/dL (6.3-8.2)
[2024-01-24 19:12] LABS: Basophils % (A) 0 %; Eosinophils # (A) 0.1 k/uL (0-0.7); Eosinophils % (A) 1 %; HCT 32.2 % (39.0-53.0); Lymphocytes # (A) 0.6 k/uL (1.0-4.8); Lymphocytes % (A) 6 %; MCH 35.6 pg (25.0-35.0); MCHC 34.2 g/dL (31.0-37.0); Macrocytosis Slight; Mean Platelet Volume 7.6; Monocytes # (A) 0.6 k/uL (0-1.0); Monocytes % (A) 6 %; Neutrophils # (A) 9.2 k/uL (1.3-7.7); Neutrophils % (A) 87 %; Platelet Count 250 k/uL (150-450); RDW 14.9 % (11.5-15.5); WBC 10.6 k/uL (3.8-10.6)
[2024-01-24 19:15] LABS: AST 53 U/L (17-59); Alkaline Phosphatase 81 U/L (38-126); Phosphorus 2.9 mg/dL (2.5-4.5); Potassium 4.4 mmol/L (3.5-5.1)
[2024-01-24] MEDS: IBUPROFEN 600 MG STARTER PACK 4 TAB BTL PO STA (19:53)
[2024-01-24] MEDS: ONDANSETRON 4 MG ODT STARTER PACK 2 TAB BTL PO STA (19:54)
[2024-01-24] MEDS: traMADol 50 MG TAB PO STA (19:54)
[2024-01-24] MEDS: ONDANSETRON ODT 4 MG TAB PO STA (19:54)
[2024-01-24] MEDS: traMADol 50 MG STARTER PACK 3 TAB BTL PO STA (19:54)
[2024-01-24 19:59] VITALS: BP 147/64; PULSE 108; RESP 18; TEMP 99.3
== END 2024-01-24 20:02 | disposition home or self-care (01) ==
LOC: EC 18:09
DX: G89.18 Other acute postprocedural pain (principal); R11.2 Nausea with vomiting, unspecified
CPT/HCPCS: 36415; 80053; 83735; 84100; 85025; 99284; 96374; 96375 ×2; 96361; G0480; J0780; J1171; J1885; S0119; 80320